=== PATIENT | male | born 1965 | race Caucasian/White ===

== ENCOUNTER → 2019-05-08 11:06 | Outpatient (CLI) | payer OTHER, SELFPAY ==
[2019-05-08 11:09] LABS: Microscopic, Urine URINE MICROSCOPIC (MICROSCOPIC)
[2019-05-08 11:42] LABS: Basophils % 0.5 % (0.1-2.0); Eosinophils # 0.1 K/mm3 (0.0-0.4); Eosinophils % 1.3 % (0.1-12.0); Hematocrit 47.7 % (42.0-52.0); Hemoglobin 16.3 g/dL (14.1-18.0); Lymphocytes # 2.1 K/mm3 (0.7-4.5); Lymphocytes % 31.8 % (10-50); Mean Corpuscular HGB Conc 34.1 g/dL (31.8-35.4); Mean Corpuscular Hemoglobin 30.9 pg (27.0-31.2); Mean Corpuscular Volume 90.6 fl (80-94); Mean Platelet Volume 7.1 fl (7.4-10.4); Monocytes # 0.6 K/mm3 (0.1-1.0); Monocytes % 9.1 % (1.7-9.3); Neutrophils # 3.8 K/mm3 (1.8-7.8); Neutrophils % 57.4 % (37.0-80.0); Platelet Count 221 K/mm3 (142-424); Red Blood Count 5.26 M/mm3 (4.60-6.20); Red Cell Distribution Width 12.5 % (11.5-17.5); White Blood Count 6.5 K/mm3 (4.8-10.8)
[2019-05-08 11:44] LABS: Appearance,Urine CLEAR (Clear); Bilirubin,Urine Negative (Negative); Blood, Urine Negative (Negative); Color,Urine YELLOW (Yellow); Glucose,Urine (UA) 3+ (Negative); Ketones,Urine Negative (Negative); Leukocyte Esterase,Urine Negative (Negative); Nitrate,Urine Negative (Negative); PH,Urine 5.5 (5.0-8.5); Protein,Urine Negative (Negative); Specific Gravity, Urine 1.015 (1.005-1.030); Urobilinogen,Urine 0.2 EU/dl (0.2)
[2019-05-08 12:31] LABS: Bacteria,Urine Trace /lpf; Squamous Epithelial Cell,Urine Occasional #/hpf (0-5)
[2019-05-08 13:22] LABS: Blood Urea Nitrogen 17 mg/dL (7-18); Calcium 9.2 mg/dL (8.5-10.1); Carbon Dioxide 27 mmol/L (21.0-32.0); Chloride 100 mmol/L (98-107); Creatinine,Serum 0.79 mg/dL (0.70-1.30); Estimated Glomerular Filt Rate 102 ml/min (>60); GFR (African American) 124 ML/MIN (>60); Glucose 166 mg/dL (74-106); Sodium 136 mmol/L (136-145)
== END ==
PROVIDERS: Visit Provider Surgery
DX: Z01.810 Encounter for preprocedural cardiovascular examination (principal); K42.9 Umbilical hernia without obstruction or gangrene; Z01.812 Encounter for preprocedural laboratory examination
CPT/HCPCS: 36415; 80048; 81001; 85025; 93005

== ENCOUNTER → 2019-08-29 13:32 | Outpatient (CLI) | payer OTHER, SELFPAY ==
--- NOTE | 2019-08-29 13:56 | CT_ITS ---
PROCEDURE: CT ABDOMEN PELVIS WO CON CLINICAL INDICATION: Questioning recurrent hernia Recurrence hernia, status post recent hernia repair COMPARISON: No exams were available for comparison TECHNIQUE: Axial images obtained with sagittal and coronal reformats. All CT scans at the facility use one or more dose reduction, viz: automated exposure control, ma/kV adjustment per patient size (including targeted exams where dose is matched to indication, i.e. head), or iterative reconstruction technique. FINDINGS: LOWER THORAX: There are coronary artery calcifications and aortic valve calcifications are noted. Normal heart size. The right hemidiaphragm is elevated. ABDOMEN & PELVIS: The liver, spleen, pancreas, adrenal glands, and kidneys show no acute finding. No intestinal obstruction or free air. No evidence of appendicitis or diverticulitis. No pelvic mass, abnormal fluid collection, or focal inflammatory change of the pelvis. No acute bony anomalies. Unremarkable appearing gallbladder. No renal or ureteral calculi. There is a prominent round collection in the anterior abdominal wall at the level of the umbilicus. This measures 7.6 x 10.5 x 7.3 cm longitudinal transverse and AP. This is well-circumscribed. The internal density is near water. This may represent a postsurgical seroma/resolving hematoma. No gas is evident within the collection in the wall does not appear thickened or irregular. There are small bilateral inguinal hernias containing fat. There does appear to be small bilateral femoral hernias as well as small bilateral inguinal hernias containing fat. No pelvic mass abnormal fluid collection or focal inflammatory change evident within the pelvis. There are degenerative changes of the lumbar spine. IMPRESSION: 1. Prominent fluid collection at the umbilical region within the subcutaneous soft tissues as described above consistent with postsurgical seroma/resolving hematoma. 2. No evidence of recurring umbilical hernia. 3. There are small bilateral inguinal and femoral hernias containing fat. Dictated by: Elder Burger MD 08/30/2019 09:29 Electronically signed by Elder Burger MD in [place] 08/30/2019 09:29
== END ==
PROVIDERS: PCP Family Medicine; Visit Provider Surgery
DX: K42.0 Umbilical hernia with obstruction, without gangrene (principal)
CPT/HCPCS: 74176

== ENCOUNTER → 2020-09-08 11:29 | Outpatient (CLI) | payer OTHER, SELFPAY | PROVIDERS: PCP Family Medicine; Visit Provider Family Medicine | DX: Z03.818 Encounter for observation for suspected exposure to other biological agents ruled out (principal) | CPT/HCPCS: U0003 ==

== ENCOUNTER → 2021-05-06 15:18 | Outpatient (CLI) | payer OTHER, SELFPAY ==
[2021-05-06 15:22] LABS: Microscopic, Urine URINE MICROSCOPIC (MICROSCOPIC)
--- NOTE | 2021-05-06 15:44 | ECG_ITS ---
APPROVED REPORT Exam: Resting ECG HR:84 bpm ECG Measurements Heart Rate 84 AXES ID 152 P 44 QRSd 80 QRS 73 QT 342 T -2 QTc 404 Conclusion Normal sinus rhythm Nonspecific T wave abnormality Abnormal ECG Electronically signed by : Octavio Barrera, 05/06/2021 21:33:31
[2021-05-06 15:50] LABS: Basophils # 0.1 K/mm3 (0-0.2); Basophils % 0.7 % (0.1-2.0); Eosinophils # 0.2 K/mm3 (0.0-0.4); Eosinophils % 2.1 % (0.1-12.0); Hematocrit 46.9 % (42.0-52.0); Hemoglobin 16.9 g/dL (14.1-18.0); Lymphocytes # 2.6 K/mm3 (0.7-4.5); Lymphocytes % 26.2 % (10-50); Mean Corpuscular Volume 91.7 fl (80-94); Mean Platelet Volume 7.2 fl (7.4-10.4); Monocytes # 0.6 K/mm3 (0.1-1.0); Monocytes % 6.2 % (1.7-9.3); Neutrophils # 6.5 K/mm3 (1.8-7.8); Neutrophils % 64.7 % (37.0-80.0); Platelet Count 247 K/mm3 (142-424); Red Blood Count 5.12 M/mm3 (4.60-6.20); Red Cell Distribution Width 13.2 % (11.5-17.5)
[2021-05-06 15:52] LABS: Appearance,Urine CLEAR (Clear); Bilirubin,Urine Negative (Negative); Blood, Urine Negative (Negative); Color,Urine YELLOW (Yellow); Glucose,Urine (UA) 3+ (Negative); Ketones,Urine TRACE (Negative); Leukocyte Esterase,Urine Negative (Negative); Nitrate,Urine Negative (Negative); Protein,Urine Negative (Negative)
[2021-05-06 16:24] LABS: Squamous Epithelial Cell,Urine Occasional #/hpf (0-5)
[2021-05-06 16:37] LABS: Chloride 97 mmol/L (98-107); Potassium 4.6 mmoL/L (3.5-5.1); Sodium 135 mmol/L (136-145)
[2021-05-06 16:39] LABS: Blood Urea Nitrogen 25 mg/dl (9-20); Estimated Glomerular Filt Rate 100 ml/min (>60); GFR (African American) 121 ML/MIN (>60)
[2021-05-06 16:40] LABS: Anion Gap 13.6 mEq/L (5-15); Calcium 9.5 mg/dl (8.4-10.2); Carbon Dioxide 29 mmol/L (22.0-30.0); Glucose 120 mg/dl (74-100)
== END ==
PROVIDERS: Visit Provider Surgery
DX: Z01.812 Encounter for preprocedural laboratory examination (principal); Z11.52 Encounter for screening for COVID-19; K43.9 Ventral hernia without obstruction or gangrene
CPT/HCPCS: 36415; 80048; 81001; 85025; 93005; U0003

== ENCOUNTER 2021-05-08 10:25 | Day surgery (SDC) | payer OTHER, SELFPAY ==
[2021-05-07 11:29] VITALS: BMI 32.5
[2021-05-08] VITALS (12 sets, daily range): BP systolic 125–160; BP diastolic 71–100; PULSE 68–86; RESP 16–18; TEMP 36.1–37; O2SAT 91–96
[2021-05-08 11:15] LABS: POC Glucose,Bedside 177 (70-110)
--- NOTE | 2021-05-08 12:14 | P.PN_ITS ---
[facility] Anesthesia Checklist - Structural Data Admitted From: Home Planned Operative Procedure/s: lap ventral hernia repair Consent for Planned Operative Procedure(s) Verified: Yes - Additional verifications Anesthesia Reactions: No Hx Blood Transfusions: No Blood Transfusion Reaction: No - Airway Assessment C-Spine Mobility Assessed: Yes TMJ Mobility Assessed: Yes Dentition: Good Dentition - Neurological Assessment Level of Consciousness: Awake, Alert, Appropriate - Anesthesia Plan Anesthesia Risk discussed: Yes Anesthesia Plan: Verified ASA Class: III Anesthesia Type: General [facility] History I have reviewed the patient's past medical history: Yes Medical History: Reports:: Diabetes Mellitus Type 2, Hyperlipidemia, Hypertension Denies:: Cancer, Diabetes Mellitus Type 1, Internal Pacemaker, MRSA, Seizures *Have you ever received a pneumonia vaccine?: Yes *Have you received a flu vaccine this season?: Yes Other Medical History: Reports: Arthritis. Denies: Blood Transfusion Reaction Anesthesia experience/problems:: none Laterality Cases: Bilateral: ACL Repair, Arthroscopy Knee Other Surgeries: Yes: No Previous Surgery, Hernia Repair. No: Pacemaker Amputation: No Fractures: No - *Social History Last grade of school completed: Some college Smoking Status: Never smoker Alcohol Intake: never Substance Use Type: denies use *Occupational Status:: employed Housing: house Household Members: spouse *Travel in the last 8 weeks: None Family Hx:: No significant family history
--- NOTE | 2021-05-08 13:49 | P.OP_ITS ---
Date of procedure: 05/08/21 Pre-op Diagnosis:: Periumbilical hernia with incarcerated omentum (left) Post-op Diagnosis:: Same Procedure performed:: Laparoscopic-assisted open repair of incarcerated periumbilical hernia Surgeon:: Marc Frazier MD Cloth Colors Examiner(s):: Annie DRAINAGE ENGINEER:: Db Blake Anesthesia: GETA Estimated blood loss (mL): 25 Operative findings:: Incarcerated left periumbilical hernia at margin of prior repair (note prior umbilical hernia repair completed with 8.2 cm Ventralex mesh) Small marginal portion of prior Ventralex removed with hernia sac New 8.2 cm Ventralex mesh secured in position with a combination of 0 Ethibond to include fascial primary closure and marginal tacking with Optiflex. Operative note:: After informed consent was obtained the patient was taken to the operating room and placed in the supine position. General anesthesia was induced and his abdomen was prepped and draped in a sterile fashion. After infiltration local anesthetic a stab incision was made in the left upper quadrant. A Veress needle was placed in position. A 5 mm optical trocar was placed in the right mid flank. Under direct visualization an additional 5 mm trocar was placed in the right upper quadrant. Evaluation revealed a 4 cm defect with incarcerated omentum. The omentum was carefully reduced. An incision over the defect was then made in the majority of the repair was completed in an open fashion. The dissection was taken with electrocautery down to the edge of the fascia. The inferior edge of the hernia sac was carefully evaluated. This was the margin of the prior Ventralex mesh. A small portion of the Ventralex was transected with the hernia sac and passed off for pathologic evaluation. A small portion of incarcerated omentum that had been reduced was evaluated. The attachments were transected with electrocautery. An additional 8.2 cm Ventralex mesh was placed in position. The mesh was secured with 0 Ethibond to also incorporate a primary fascial closure. Pneumoperitoneum was once again established and evaluation revealed mild infolding of the mesh. The margin of the mesh was secured with Optiflex tacks. Pneumoperitoneum was released and skin skin was closed with interrupted 4-0 nylon. Dressings were applied and the patient was transferred to recovery in stable condition after extubation. Condition: stable Disposition: PACU Specimens:: Hernia sac Complications:: No immediate
[2021-05-08 14:04] LABS: Microscopic, Urine URINE MICROSCOPIC (MICROSCOPIC)
[2021-05-08 14:07] LABS: Appearance,Urine CLEAR (Clear); Bilirubin,Urine Negative (Negative); Blood, Urine Negative (Negative); Color,Urine YELLOW (Yellow); Glucose,Urine (UA) TRACE (Negative); Ketones,Urine Negative (Negative); Leukocyte Esterase,Urine Negative (Negative); Nitrate,Urine Negative (Negative); PH,Urine 5.5 (5.0-8.5); Protein,Urine Negative (Negative); Urobilinogen,Urine 0.2 EU/dl (0.2)
[2021-05-08 14:19] LABS: Squamous Epithelial Cell,Urine Occasional #/hpf (0-5)
[2021-05-08 14:31] LABS: POC Glucose,Bedside 171 (70-110)
--- NOTE | 2021-05-08 14:49 | P.PN_ITS ---
[facility] Anesthesia Record Part I Intake, IV Amount: 2,000 Estimated blood loss (mL): 10 Urine output (mL): 300 Blood Pressure: 160/100 SaO2: 94 Pulse Rate: 68 Respiratory Rate: 16 Temperature: 98.6 F Patient is:: Drowsy, Stable Stable to PACU at:: 14:00
--- NOTE | 2021-05-08 14:51 | PC.NURSE ---
pt voiding per urinal
--- NOTE | 2021-05-08 17:32 | HMH.ANESII ---
[facility] Anesthesia Record Part II Discharge Time: 14:39 Destination: Surgical Day Care (OP Surgery) PACU nurse assessment reviewed?: Yes Patient Condition:: Good Anesthesia Complications:: None Swallowing reflex intact?: Yes Cyanosis?: No Blood Pressure: 139/87 Pulse Rate: 73 Temperature: 97 F Mental Status: Alert & Oriented Pain level:: 4 Nausea and/or vomitting:: None Intake, IV Amount: 0
== END 2021-05-08 15:20 | disposition home or self-care (01) ==
LOC: OR 10:27
PROVIDERS: PCP Family Medicine; Visit Provider Surgery
PROC: 0WQF4ZZ Repair Abdominal Wall, Percutaneous Endoscopic Approach (ICD-10-PCS; CPT 49587; principal; 2021-05-08 12:00)
DX: K42.0 Umbilical hernia with obstruction, without gangrene (principal); E11.9 Type 2 diabetes mellitus without complications; E78.5 Hyperlipidemia, unspecified; I10 Essential (primary) hypertension; M19.90 Unspecified osteoarthritis, unspecified site; Z79.899 Other long term (current) drug therapy
CPT/HCPCS: 49587; 81001; 82962; 96374; C1781; J2405; J2710

== ENCOUNTER 2021-10-15 09:12 | Emergency (ER) | payer OTHER, SELFPAY ==
[2021-10-15 09:35] VITALS: BP 143/85; PULSE 83; RESP 18; TEMP 36.8; O2SAT 95; BMI 33.2
[2021-10-15 09:48] LABS: UTC Strep Screen (Rapid) Negative (Negative)
--- NOTE | 2021-10-15 10:31 | HMH.EDUTC ---
[facility] Disposition Clinical Impression: Acute bronchitis Qualifiers: Bronchitis organism: unspecified organism Qualified Code(s): J20.9 - Acute bronchitis, unspecified Sinusitis Qualifiers: Sinusitis location: unspecified location Chronicity: acute Recurrence: non-recurrent Qualified Code(s): J01.90 - Acute sinusitis, unspecified Disposition: Home, Self-Care Condition on Discharge: Good Instructions: DI for Sinusitis, DI for Acute Bronchitis Additional Instructions: Drink plenty of fluids. Take tylenol or ibuprofen for pain or fever. Take the medications as directed. Follow up with your regular doctor. GO TO THE ER FOR ANY WORSENING SYMPTOMS Go ahead and start the antibiotics this afternoon, even though you had the shot here this morning. Prescriptions: Promethazine/Dextromethorphan [Promethazine-Dm Syrup] 5 ml PO Q6HP PRN #240 ml PRN Reason: Cough Transmission Status: Received by [facility] Amoxicillin/Potassium Clav [Augmentin 875-125 Tablet] 1 tab PO Q12H 10 Days #20 tab Transmission Status: Received by [facility] guaiFENesin [Mucinex 600mg tablet] 1 - 2 tab PO BIDP PRN #30 tab PRN Reason: Congestion Transmission Status: [facility] Referrals: Octavio Carnes MD [Primary Care Provider] - Time of Disposition: 10:48 Medical Decision Making - Medical Records Medical records reviewed: No: I reviewed the patient's medical records. - Farzad Inquiry Pt receiving controlled substance: No Vital Signs: 10/15/21 09:35 10/15/21 10:54 Temperature 98.3 F 98.3 F Temperature Source Oral Pulse Rate 83 Pulse Rate [Left] 83 Respiratory Rate 18 18 Blood Pressure 143/85 H Blood Pressure [Right Arm] 143/85 H Blood Pressure Mean [Right Arm] 104 02 Sat by Pulse Oximetry 95 - Lab Data Lab Results 10/15/21 09:38: Strep Scn Rapid Clinic Negative Orders (Tests/Meds): ED MEDICATIONS Discontinued Medications Generic Name Dose Route Start Last Admin Trade Name Freq PRN Reason Stop Dose Admin Ceftriaxone Sodium 1 gm 10/15/21 10:31 10/15/21 10:40 Ceftriaxone 1gm Vial IM 10/15/21 10:32 1 gm ONCE ONE Administration Lidocaine HCl 0 ml 10/15/21 10:31 10/15/21 10:40 Lidocaine 1% 5ml Pf Vial IM 10/15/21 10:32 2 ml ONCE ONE Administration ORDERS Category Date Time Status Strep Screen Confirmation Routine Micro 10/15/21 09:38 Received [facility] HPI - General Stated complaint: sore throat, congestion Time Seen by Provider: 10/15/21 10:31 Mode of Arrival: Ambulatory Source of Information: Patient Limitations: No Limitations Description of Symptoms (Recalled from Triage Doc. by RN): pt c/o sinus congestion/pressure and drainage, sore throat, and a cough. x1week HEENT Symptoms (Recalled from RN notes): Yes (sore throat and sinus congestion/drainage) Resp Symptoms (Recalled from RN notes): Yes (cough) Skin Symptoms (Recalled from RN notes): No MS Symptoms (Recalled from RN notes): No Functional Status (Recalled from RN notes): wnl - Related Data Home Medications Medication Instructions Recorded Confirmed canagliflozin 300 mg tablet 300 mg PO DAILY 90 Days 01/12/18 06/09/21 lisinopril 10 mg tablet 10 mg PO DAILY 90 Days 01/12/18 06/09/21 meloxicam 15 mg tablet 15 mg PO DAILY 90 Days 01/12/18 06/09/21 pravastatin 20 mg tablet 20 mg PO DAILY 90 Days 01/12/18 06/09/21 saxagliptin 2.5 mg-metformin ER 1 tab PO DAILY 90 Days 01/12/18 06/09/21 1,000 mg tablet,extend release 24hr mp Previous Rx's Medication Instructions Recorded Amoxicillin/Potassium Clav 1 tab PO Q12H 10 Days #20 tab 10/15/21 [Augmentin 875-125 Tablet] Promethazine/Dextromethorphan 5 ml PO Q6HP PRN #240 ml 10/15/21 [Promethazine-Dm Syrup] guaiFENesin [Mucinex 600mg tablet] 1 - 2 tab PO BIDP PRN #30 tab 10/15/21 Allergies Allergy/AdvReac Type Severity Reaction Status Date / Time No Known Drug Allergies Allergy Unknown Verif
[2021-10-15 10:54] VITALS: BP 143/85; PULSE 83; RESP 18; TEMP 36.8
== END 2021-10-15 10:59 | disposition home or self-care (01) ==
PROVIDERS: Emergency Provider Nurse Practitioner Family; PCP Family Medicine
DX: J20.9 Acute bronchitis, unspecified (principal); J01.90 Acute sinusitis, unspecified; I10 Essential (primary) hypertension; E78.5 Hyperlipidemia, unspecified; E11.9 Type 2 diabetes mellitus without complications; Z79.899 Other long term (current) drug therapy
CPT/HCPCS: 87880; 99202; G0463

== ENCOUNTER 2021-10-16 13:40 | Emergency (ER) | payer OTHER, SELFPAY ==
[2021-10-16 14:06] VITALS: BP 0/0; PULSE 0; RESP 0; TEMP -17.7; TEMP 0
== END 2021-10-16 14:07 | disposition left against medical advice (07) ==
PROVIDERS: Emergency Provider Nurse Practitioner Family; PCP Family Medicine
DX: Z53.21 Procedure and treatment not carried out due to patient leaving prior to being seen by health care provider (principal)

== ENCOUNTER → 2021-10-16 13:45 | Outpatient (CLI) | payer OTHER, SELFPAY | PROVIDERS: PCP Family Medicine; Visit Provider Nurse Practitioner Family | DX: Z20.822 Contact with and (suspected) exposure to COVID-19 (principal) | CPT/HCPCS: C9803; U0003; U0005 ==

== ENCOUNTER → 2021-12-10 10:49 | Outpatient (CLI) | payer OTHER, SELFPAY ==
[2021-12-11 06:32] LABS: Covid-19 Nasal PCR Sendout Lex POSITIVE
== END ==
PROVIDERS: Visit Provider Nurse Practitioner
DX: U07.1 COVID-19 (principal)
CPT/HCPCS: C9803; U0004; U0005

== ENCOUNTER → 2021-12-24 14:30 | Outpatient (CLI) | payer OTHER, SELFPAY ==
--- NOTE | 2021-12-24 14:40 | XR_ITS ---
FINAL REPORT CLINICAL HISTORY: COUGH, hx of covid 1.5 weeks ago FINDINGS: Two views of the chest were obtained. The heart size and pulmonary vascularity are within normal limits. The mediastinum is normal. There is mild left lung base atelectasis or pneumonia. There is no pneumothorax. There are moderate degenerative changes of the thoracic spine. IMPRESSION: Mild left base atelectasis or pneumonia. Reviewed, Interpreted and Dictated by Sylvester Lundberg III, MD Transcribed by Andrew Stone Authenticated by Sylvester Lundberg III, MD on 12/24/2021 04:18:17 PM [facility]
[2021-12-24 16:13] LABS: Basophils # 0.1 K/mm3 (0-0.2); Basophils % 1.3 % (0.1-2.0); Eosinophils # 0.1 K/mm3 (0.0-0.4); Eosinophils % 1.5 % (0.1-12.0); Hematocrit 50.6 % (42.0-52.0); Hemoglobin 17.6 g/dL (14.1-18.0); Lymphocytes # 2.1 K/mm3 (0.7-4.5); Lymphocytes % 30.2 % (10-50); Mean Corpuscular HGB Conc 34.8 g/dL (31.8-35.4); Mean Corpuscular Hemoglobin 32.9 pg (27.0-31.2); Mean Corpuscular Volume 94.6 fl (80-94); Mean Platelet Volume 8.4 fl (7.4-10.4); Monocytes # 0.4 K/mm3 (0.1-1.0); Monocytes % 5.1 % (1.7-9.3); Neutrophils # 4.3 K/mm3 (1.8-7.8); Platelet Count 291 K/mm3 (142-424); Red Blood Count 5.35 M/mm3 (4.60-6.20); Red Cell Distribution Width 13.4 % (11.5-17.5)
[2021-12-24 17:00] LABS: Alanine Aminotransferase 56 U/L (12-78); Albumin/Globulin Ratio 1.7 (1.1-1.8); Alkaline Phosphatase 80 U/L (38-126); Anion Gap 11.4 mEq/L (5-15); Aspartate Amino Transferase 43 U/L (17-59); Bilirubin,Total 0.7 mg/dl (0.2-1.3); Blood Urea Nitrogen 14 mg/dl (9-20); Calcium 9.1 mg/dl (8.4-10.2); Carbon Dioxide 28 mmol/L (22.0-30.0); Chloride 103 mmol/L (98-107); Estimated Glomerular Filt Rate 116 ml/min (>60); GFR (African American) 141 ML/MIN (>60); Globulin 2.3 g/dL (1.3-3.2); Glucose 158 mg/dl (74-100); Potassium 4.4 mmoL/L (3.5-5.1); Sodium 138 mmol/L (136-145); Total Protein,Serum 6.3 g/dl (6.3-8.2)
[2021-12-24 17:05] LABS: C-Reactive Protein 1.6 mg/L (0-4)
== END ==
PROVIDERS: PCP Family Medicine; Visit Provider Family Medicine
DX: R06.02 Shortness of breath (principal); R05.9 Cough, unspecified
CPT/HCPCS: 36415; 71046; 80053; 85025; 86140

== ENCOUNTER 2022-07-05 21:03 | Emergency (ER) | payer OTHER, SELFPAY ==
[2022-07-05 21:05] VITALS: BP 130/109; PULSE 73; RESP 16; TEMP 36.9; O2SAT 98; BMI 34.9
--- NOTE | 2022-07-05 21:34 | CT_ITS ---
PROCEDURE INFORMATION: Exam: CT Abdomen And Pelvis With Contrast Exam date and time: 07/05/22 11:09 PM Age: 57 years old Clinical indication: Abdominal pain; Prior surgery; Surgery type: Inguinal hernia repairs; Patient HX: PT states abd pain/cramping since 1400. PT states currently has a hernia TECHNIQUE: Imaging protocol: Computed tomography of the abdomen and pelvis with contrast. Radiation optimization: All CT scans at this facility use at least one of these dose optimization techniques: automated exposure control; mA and/or kV adjustment per patient size (includes targeted exams where dose is matched to clinical indication); or iterative reconstruction. Contrast material: ISOVUE; Contrast volume: 75 ml; Contrast route: IV; COMPARISON: CT ABDOMEN PELVIS WO CON 08/29/19 01:59 PM FINDINGS: Tubes, catheters and devices: None noted. Lungs: Lung bases appear clear. Heart: No significant coronary calcifications. No cardiomegaly. No significant pericardial effusion. Liver: Normal. No mass. Gallbladder and bile ducts: Normal. No calcified stones. No ductal dilation. Pancreas: Normal. No ductal dilation. Spleen: Normal. No splenomegaly. Adrenal glands: Normal. No mass. Kidneys and ureters: Normal. No hydronephrosis. Stomach and bowel: Unremarkable. No obstruction. No mucosal thickening. Appendix: No evidence of appendicitis. Intraperitoneal space: Unremarkable. No free air. No significant fluid collection. Retroperitoneal space: No significant retroperitoneal inflammatory changes are noted. Vasculature: Unremarkable. No abdominal aortic aneurysm. Lymph nodes: Unremarkable. No enlarged lymph nodes. Urinary bladder: Unremarkable as visualized. Reproductive: Unremarkable as visualized. Bones/joints: Unremarkable. No acute fracture. Soft tissues: Periumbilical hernia eccentric to the right contains bowel with high-grade small bowel obstruction. Bilateral inguinal hernias contain fat. IMPRESSION: Periumbilical hernia eccentric to the right contains bowel with high-grade small bowel obstruction.
[2022-07-05 22:05] LABS: Basophils # 0.3 K/mm3 (0-0.2); Basophils % 1.5 % (0.1-2.0); Eosinophils # 0.3 K/mm3 (0.0-0.4); Eosinophils % 1.6 % (0.1-12.0); Hematocrit 54.5 % (42.0-52.0); Lymphocytes # 2.1 K/mm3 (0.7-4.5); Lymphocytes % 12.5 % (10-50); Mean Corpuscular HGB Conc 33.4 g/dL (31.8-35.4); Mean Corpuscular Volume 98.7 fl (80-94); Mean Platelet Volume 8.1 fl (7.4-10.4); Monocytes # 0.8 K/mm3 (0.1-1.0); Monocytes % 4.9 % (1.7-9.3); Neutrophils % 79.5 % (37.0-80.0); Platelet Count 275 K/mm3 (142-424); Red Blood Count 5.52 M/mm3 (4.60-6.20); Red Cell Distribution Width 13.3 % (11.5-17.5); White Blood Count 16.3 K/mm3 (4.8-10.8)
[2022-07-05 22:28] LABS: MANUAL DIFFERENTIAL MANUAL DIFFERENTIAL (MANUAL DIFF)
[2022-07-05 22:29] LABS: Hemoglobin 18.3 g/dL (14.1-18.0)
[2022-07-05 22:31] LABS: Alanine Aminotransferase 80 U/L (12-78); Albumin Level 4.2 g/dl (3.5-5.0); Albumin/Globulin Ratio 1.6 (1.1-1.8); Alkaline Phosphatase 88 U/L (38-126); Amylase 57 U/L (30-110); Anion Gap 18.3 mEq/L (5-15); Aspartate Amino Transferase 59 U/L (17-59); Blood Urea Nitrogen 19 mg/dl (9-20); Calcium 9.3 mg/dl (8.4-10.2); Carbon Dioxide 21 mmol/L (22.0-30.0); Chloride 97 mmol/L (98-107); Creatinine Clearance Estimated 228 mL/min (50-200); Estimated Glomerular Filt Rate 138 ml/min (>60); GFR (African American) 167 ML/MIN (>60); Globulin 2.6 g/dL (1.3-3.2); Glucose 192 mg/dl (74-100); Lipase 52 U/L (23-300); Potassium 4.3 mmoL/L (3.5-5.1); Sodium 132 mmol/L (136-145); Total Protein,Serum 6.8 g/dl (6.3-8.2)
[2022-07-05 22:36] LABS: C-Reactive Protein 2.9 mg/L (0-4)
[2022-07-05 22:37] LABS: Eosinophils % 2 % (0-3); Lymphocytes % 11 % (10-50); Monocytes % 8 % (2-9); Neutrophils % 79 % (42-76); Platelet Estimate Normal; RBC Morphology Normal; Total Cells Counted 100
[2022-07-05 22:50] LABS: Procalcitonin 0.126 ng/mL (0.0-2.0)
[2022-07-05 23:26] LABS: Erythrocyte Sedimentation Rate 20 mm/hr (0-20)
--- NOTE | 2022-07-05 23:36 | HMH.EDABDPAI ---
Discharge Plan Disposition Patient Disposition: Home, Self-Care Chief Complaint: Abdominal Pain Prescriptions Prescriptions: No Action meloxicam 15 mg tablet 15 mg PO DAILY 90 Days Label Comments: lisinopril 10 mg tablet 10 mg PO DAILY 90 Days Label Comments: pravastatin 20 mg tablet 20 mg PO DAILY 90 Days Label Comments: saxagliptin-metformin 2.5-1,000 mg tablet, ER multiphase 24 hr 1 tab PO DAILY 90 Days Label Comments: canagliflozin 300 mg tablet 300 mg PO DAILY 90 Days Label Comments: guaifenesin 600 MG tablet extended release 12hr 1 - 2 tab PO BIDP PRN (Reason: Congestion) Qty: 30 0RF Referrals Follow up/Referrals: Marga Campos APRN [Primary Care Provider] - See instructions Clinical Impressions Clinical Impression: Ventral hernia with bowel obstruction Instructions Patient Instructions: DI for Acute Abdominal Pain, DI for Ventral Hernia Discharge ED Provider: Jhoan Vann Abdominal Pain HPI General Chief Complaint: Abdominal Pain Stated Complaint: Adm pain, poss hernia surgery 07/15 Time Seen by Provider: 07/05/22 23:36 Mode of Arrival: Ambulatory Source of Information: Patient, Spouse and Medical Record Limitations: No Limitations Description of Symptoms (Recalled from ER Triage Doc. by RN): pt c/o abd pain about umbical area that started about 2:30 this afternoon. pt has known herina and scheduled for surgery on 07/15 History of Present Illness HPI narrative: acute rt sided ventral hernia known but with acute pain this afternoon MD complaint: abdominal pain Onset (ago): hour(s) Consistency: constant Location: periumbilical Severity: moderate Quality: sharp Associated symptoms: denies other symptoms Related Data Home Medications Medication Instructions Recorded Confirmed canagliflozin 300 mg tablet 300 mg PO DAILY Diabetes 90 days 01/12/18 06/18/22 lisinopril 10 mg tablet 10 mg PO DAILY blood pressure 90 01/12/18 06/18/22 days meloxicam 15 mg tablet 15 mg PO DAILY Pain 90 days 01/12/18 06/18/22 pravastatin 20 mg tablet 20 mg PO DAILY Cholesterol 90 days 01/12/18 06/18/22 saxagliptin 2.5 mg-metformin ER 1 tab PO DAILY Diabetes 90 days 01/12/18 06/18/22 1,000 mg tablet,extend release 24hr mp Previous Rx's Medication Instructions Recorded guaifenesin 600 mg tablet, 1 - 2 tab PO BIDP PRN Congestion 10/15/21 extended release 12 hr #30 tabs Allergies Allergy/AdvReac Type Severity Reaction Status Date / Time No Known Drug Allergies Allergy Unknown Verified 06/18/22 09:05 [NKDA] PFSH PFS Surgical History (Updated 06/18/22 @ 09:09 by RICARDO Elizabeth) History of hernia surgery Social History (Updated 06/18/22 @ 09:44 by Marc Frazier MD) Smoking Status: Never smoker second hand exposure: No alcohol intake: never substance use type: denies use current occupational status: employed Travel in the last 8 weeks: None household members: spouse housing: house current occupational exposures/hazards: No caffeine: Yes ROS Obtained: Yes All systems reviewed & no additional complaints except as documented Constitutional Constitutional: Denies fever(s) Eyes Eyes: Denies diplopia ENT Ears, Nose, Mouth, and Throat: Denies otalgia Cardiovascular Cardiovascular: Denies chest pain with activity Respiratory Respiratory: Denies cough Gastrointestinal Gastrointestingal: Reports as per HPI, abdominal pain and other (has known hernia ) Musculoskeletal Musculoskeletal: Denies arthralgias Physical Exam General General appearance: alert Head Head exam: normocephalic Eye Eye exam: Present PERRL and EOMI ENT ENT exam: Present mucous membranes moist Neck Neck exam: Present trachea midline Respiratory Respiratory exam: Absent respiratory distress Cardiovascular Cardiovascular exam: Present regular rate Abdominal Exam Abdominal exam: Present soft an
[2022-07-05 23:43] LABS: Microscopic, Urine URINE MICROSCOPIC (MICROSCOPIC)
[2022-07-05 23:46] LABS: Appearance,Urine CLEAR (Clear); Bilirubin,Urine Negative (Negative); Blood, Urine Negative (Negative); Color,Urine YELLOW (Yellow); Glucose,Urine (UA) Negative (Negative); Ketones,Urine Negative (Negative); Leukocyte Esterase,Urine Negative (Negative); Nitrate,Urine Negative (Negative); Protein,Urine Negative (Negative); Specific Gravity, Urine 1.025 (1.005-1.030)
[2022-07-06 00:06] LABS: Bacteria,Urine 1+ /lpf; WBC,Urine Occasional #/hpf (0-3)
--- NOTE | 2022-07-06 00:09 | PC.NURSE ---
Dr. Spence paged for Dr. Vann
[2022-07-06 00:37] VITALS: BP 143/71; PULSE 87; RESP 16; TEMP 36.6; O2SAT 95
== END 2022-07-06 00:39 | disposition home or self-care (01) ==
PROVIDERS: Emergency Provider Emergency Medicine; PCP Nurse Practitioner Family
DX: K43.6 Other and unspecified ventral hernia with obstruction, without gangrene (principal)
CPT/HCPCS: 74177; 80053; 81001; 82150; 83690; 84145; 85007; 85025; 85651; 86140; 96361; 96374; 96375; 99284; J2405; Q9967

== ENCOUNTER → 2022-07-13 08:01 | Outpatient (CLI) | payer OTHER, SELFPAY ==
--- NOTE | 2022-07-13 08:06 | ECG_ITS ---
APPROVED REPORT Exam: Resting ECG HR:78 bpm ECG Measurements Heart Rate 78 AXES WY 156 P 17 QRSd 81 QRS 30 QT 351 T 56 QTc 384 Conclusion SINUS RHYTHM NORMAL ECG UNCONFIRMED REPORT Electronically signed by : Octavio Barrera MD 07/13/2022 21:08:32
[2022-07-13 08:17] LABS: Microscopic, Urine URINE MICROSCOPIC (MICROSCOPIC)
[2022-07-13 09:11] LABS: Basophils # 0.1 K/mm3 (0-0.2); Basophils % 0.9 % (0.1-2.0); Eosinophils # 0.2 K/mm3 (0.0-0.4); Hematocrit 52.9 % (42.0-52.0); Hemoglobin 17.9 g/dL (14.1-18.0); Lymphocytes # 2.1 K/mm3 (0.7-4.5); Lymphocytes % 24.9 % (10-50); Mean Corpuscular HGB Conc 33.9 g/dL (31.8-35.4); Mean Corpuscular Hemoglobin 33.1 pg (27.0-31.2); Mean Corpuscular Volume 97.5 fl (80-94); Mean Platelet Volume 7.7 fl (7.4-10.4); Monocytes # 0.6 K/mm3 (0.1-1.0); Monocytes % 7.1 % (1.7-9.3); Neutrophils # 5.4 K/mm3 (1.8-7.8); Neutrophils % 65.1 % (37.0-80.0); Platelet Count 275 K/mm3 (142-424); Red Blood Count 5.42 M/mm3 (4.60-6.20); Red Cell Distribution Width 13.3 % (11.5-17.5); White Blood Count 8.3 K/mm3 (4.8-10.8)
[2022-07-13 09:32] LABS: Appearance,Urine CLEAR (Clear); Bilirubin,Urine Negative (Negative); Blood, Urine Negative (Negative); Color,Urine YELLOW (Yellow); Glucose,Urine (UA) 3+ (Negative); Ketones,Urine Negative (Negative); Leukocyte Esterase,Urine Negative (Negative); Nitrate,Urine Negative (Negative); PH,Urine 5.5 (5.0-8.5); Protein,Urine Negative (Negative); Specific Gravity, Urine 1.015 (1.005-1.030); Urobilinogen,Urine 0.2 EU/dl (0.2)
[2022-07-13 09:43] LABS: Chloride 98 mmol/L (98-107); Potassium 4.9 mmoL/L (3.5-5.1); Sodium 140 mmol/L (136-145)
[2022-07-13 09:46] LABS: Anion Gap 16.9 mEq/L (5-15); Blood Urea Nitrogen 17 mg/dl (9-20); Calcium 9.2 mg/dl (8.4-10.2); Carbon Dioxide 30 mmol/L (22.0-30.0); Estimated Glomerular Filt Rate 138 ml/min (>60); GFR (African American) 167 ML/MIN (>60); Glucose 266 mg/dl (74-100)
[2022-07-13 09:55] LABS: Squamous Epithelial Cell,Urine Occasional #/hpf (0-5); WBC,Urine Occasional #/hpf (0-3)
== END ==
PROVIDERS: PCP Family Medicine; Visit Provider Surgery
DX: Z01.818 Encounter for other preprocedural examination (principal); Z20.822 Contact with and (suspected) exposure to COVID-19; K43.9 Ventral hernia without obstruction or gangrene
CPT/HCPCS: 36415; 80048; 81001; 85025; 93005; C9803; U0003; U0005

== ENCOUNTER 2022-07-15 08:39 | Day surgery (SDC) | payer OTHER, SELFPAY ==
[2022-07-13 11:12] VITALS: BMI 34.5
[2022-07-15 09:01] VITALS: BP 149/88; PULSE 94; RESP 18; TEMP 36.6; O2SAT 97
[2022-07-15 09:08] LABS: POC Glucose,Bedside 346 (70-110)
--- NOTE | 2022-07-15 10:02 | SUR.PREOP ---
Case cancelled per Dr. Frazier due to FSBS of 346. Case to be rescheduled in 2-4 weeks after pt. sees PCP for DM management. Will make f/u apt to see Dr. Frazier in the office in 2 weeks. Pt. denies any questions at this time.
== END 2022-07-15 10:04 | disposition home or self-care (01) ==
LOC: OR 08:40
PROVIDERS: PCP Family Medicine; Visit Provider Surgery
PROC: 0WQF4ZZ Repair Abdominal Wall, Percutaneous Endoscopic Approach (ICD-10-PCS; CPT 49652; principal; 2022-07-15 10:15)
DX: K43.2 Incisional hernia without obstruction or gangrene (principal); Z53.09 Procedure and treatment not carried out because of other contraindication; E11.65 Type 2 diabetes mellitus with hyperglycemia
CPT/HCPCS: 49652; 82962; 96374

== ENCOUNTER → 2022-07-21 09:34 | Outpatient (CLI) | payer OTHER, SELFPAY ==
[2022-07-21 09:42] LABS: Coronavirus 19, PCR Not Detected (NotDetected); Influenza A, PCR Not Detected (NotDetected); Influenza B, PCR Not Detected (NotDetected)
== END ==
PROVIDERS: PCP Family Medicine; Visit Provider Surgery
DX: Z01.812 Encounter for preprocedural laboratory examination (principal); Z20.822 Contact with and (suspected) exposure to COVID-19; L72.3 Sebaceous cyst
CPT/HCPCS: C9803; U0003; U0005

== ENCOUNTER 2022-07-22 07:09 | Day surgery (SDC) | payer OTHER, SELFPAY ==
[2022-07-22] VITALS (10 sets, daily range): BP systolic 106–124; BP diastolic 60–89; PULSE 66–82; RESP 16–20; TEMP 36.1–36.4; O2SAT 95–98; BMI 33.2
[2022-07-22 07:41] LABS: POC Glucose,Bedside 177 (70-110)
--- NOTE | 2022-07-22 09:13 | EXP.ANES.CKL ---
[facility] Medical History Diabetes mellitus, type 2 History of COVID-19 Hyperlipidemia Hypertension Kidney stone Sleep apnea Surgical History History of hernia surgery History of knee replacement Family History Other No significant family history Social History (Updated 07/22/22 @ 07:37 by Danette Lombardi RN) Smoking Status: Never smoker second hand exposure: No alcohol intake: never substance use type: denies use current occupational status: employed Travel in the last 8 weeks: None household members: spouse housing: house current occupational exposures/hazards: No caffeine: Yes [facility] Anesthesia Checklist Patient Identification Patient Identification: Arm Band Structural Data Admitted From: Home Planned Operative Procedure/s: Excision of Back Cyst Consent for Planned Operative Procedure(s) Verified: Yes Verified Documents: Surgical Consent and History and Physical NPO Status Verified Time NPO: 00:00 Additional verifications Anesthesia Reactions: No Hx Blood Transfusions: No Blood Transfusion Reaction: No Airway Assessment C-Spine Mobility Assessed: Yes TMJ Mobility Assessed: Yes Dentition: Good Dentition Neurological Assessment Level of Consciousness: Awake and Alert Anesthesia Plan Anesthesia Risk discussed: Yes Anesthesia Plan: Verified ASA Class: II Anesthesia Type: General
--- NOTE | 2022-07-22 09:13 | EXP.OP.NOTE ---
Date of procedure: 07/22/22 Pre-op Diagnosis:: Infected sebaceous cyst mid upper back Post-op Diagnosis:: Same Procedure performed:: Incision and drainage of infected sebaceous cyst mid upper back Surgeon:: Marc Frazier MD NUCLEAR MEDICINE CHIEF TECHNOLOGIST:: Brian Carbone Anesthesia: LMA Estimated blood loss (mL): 15 Operative findings:: Infected cyst cavity excised Operative note:: After informed consent was obtained patient was taken to the operating room and placed in the supine position. General anesthesia with laryngeal mask airway was achieved. He was transferred to the left lateral decubitus position. His mid back was prepped and draped in a sterile fashion. The central portion of the abscess cavity/cyst was excised with electrocautery after initial scalpel incision of the skin. The deep subcutaneous tissue was carefully dissected around the cyst cavity. The wound was packed open with Kerlix after hemostasis was achieved with electrocautery. The entire region was infiltrated with 1% lidocaine. Dressings were applied and the patient was transferred to recovery in stable condition after removal of his laryngeal mask airway. Condition: stable Disposition: PACU Specimens:: None Complications:: No immediate
--- NOTE | 2022-07-22 09:14 | EXP.ANES.I ---
[facility] Anesthesia Record Part I Anesthesia Record I Intake, IV Amount: 600 Estimated blood loss (mL): 5 Urine output (mL): 0 Blood Pressure: 106/60 SaO2: 95 Pulse Rate: 73 Respiratory Rate: 16 Temperature: 97.1 F Patient is:: Drowsy and Stable Stable to PACU at:: 09:10
[2022-07-22 10:22] LABS: POC Glucose,Bedside 160 (70-110)
--- NOTE | 2022-07-22 10:28 | PC.NURSE ---
0916-bs 160, notified ALEKSANDR Hoang, no further orders given
--- NOTE | 2022-07-22 10:33 | PC.NURSE ---
0935-detailed report given to APOLONIA Boswell 0940-pt transported to post op via stretcher w/eddie rails up and left in care of APOLONIA Boswell and APOLONIA Jin , pt stable
[2022-07-23 14:36] VITALS: BP 122/67; PULSE 80; TEMP 36.2
--- NOTE | 2022-07-23 14:36 | EXP.ANES.II ---
[facility] Anesthesia Record Part II Anesthesia Record Part II Discharge Time: 09:40 Destination: Surgical Day Care (OP Surgery) PACU nurse assessment reviewed?: Yes Patient Condition:: Good Anesthesia Complications:: None Swallowing reflex intact?: Yes Cyanosis?: No Blood Pressure: 122/67 Pulse Rate: 80 Temperature: 97.2 F Mental Status: Alert & Oriented Pain level:: 0 Nausea and/or vomitting:: None Intake, IV Amount: 0
== END 2022-07-22 10:11 | disposition home or self-care (01) ==
PROVIDERS: PCP Family Medicine; Visit Provider Surgery
PROC: (CPT 10061; principal; 2022-07-22 08:45)
DX: L72.3 Sebaceous cyst (principal); Z79.899 Other long term (current) drug therapy; E11.9 Type 2 diabetes mellitus without complications
CPT/HCPCS: 10061; 82962; 96374; J2405

== ENCOUNTER → 2022-08-06 09:24 | Outpatient (CLI) | payer OTHER, SELFPAY ==
[2022-08-06 09:44] LABS: Basophils # 0.1 K/mm3 (0-0.2); Eosinophils # 0.1 K/mm3 (0.0-0.4); Eosinophils % 1.6 % (0.1-12.0); Hematocrit 47.9 % (42.0-52.0); Lymphocytes # 1.8 K/mm3 (0.7-4.5); Lymphocytes % 27.2 % (10-50); Mean Corpuscular HGB Conc 33.5 g/dL (31.8-35.4); Mean Corpuscular Hemoglobin 32.4 pg (27.0-31.2); Mean Corpuscular Volume 96.8 fl (80-94); Mean Platelet Volume 7.4 fl (7.4-10.4); Monocytes # 0.4 K/mm3 (0.1-1.0); Monocytes % 6.6 % (1.7-9.3); Neutrophils # 4.3 K/mm3 (1.8-7.8); Neutrophils % 63.6 % (37.0-80.0); Platelet Count 225 K/mm3 (142-424); Red Blood Count 4.95 M/mm3 (4.60-6.20); Red Cell Distribution Width 13.1 % (11.5-17.5); White Blood Count 6.7 K/mm3 (4.8-10.8)
[2022-08-06 10:06] LABS: Blood Urea Nitrogen 23 mg/dl (9-20); Calcium 9.2 mg/dl (8.4-10.2); Carbon Dioxide 25 mmol/L (22.0-30.0); Chloride 97 mmol/L (98-107); Estimated Glomerular Filt Rate 138 ml/min (>60); GFR (African American) 167 ML/MIN (>60); Glucose 157 mg/dl (74-100); Sodium 132 mmol/L (136-145)
== END ==
PROVIDERS: PCP Family Medicine; Visit Provider Surgery
DX: K43.9 Ventral hernia without obstruction or gangrene (principal)
CPT/HCPCS: 36415; 80048; 85025

== ENCOUNTER 2022-08-13 07:50 | Day surgery (SDC) | payer OTHER, SELFPAY ==
[2022-08-11 15:25] VITALS: BMI 32.5
[2022-08-13] VITALS (10 sets, daily range): BP systolic 129–153; BP diastolic 70–89; PULSE 65–76; RESP 16–18; TEMP 36.1–43; O2SAT 93–98
--- NOTE | 2022-08-13 09:09 | EXP.ANES.CKL ---
[facility] Medical History Diabetes mellitus, type 2 History of COVID-19 Hyperlipidemia Hypertension Kidney stone Sleep apnea Surgical History History of hernia surgery History of incision and drainage History of knee replacement Family History Other No significant family history Social History Smoking Status: Never smoker second hand exposure: No alcohol intake: never substance use type: denies use current occupational status: employed Travel in the last 8 weeks: None household members: spouse housing: house current occupational exposures/hazards: No caffeine: Yes [facility] Anesthesia Checklist Patient Identification Patient Identification: Arm Band and Verbal (Name & ) Structural Data Admitted From: Home Planned Operative Procedure/s: Laparascopic Ventral Hernia Repair Consent for Planned Operative Procedure(s) Verified: Yes Verified Documents: Surgical Consent NPO Status Verified Time NPO: 00:00 Additional verifications Anesthesia Reactions: No Hx Blood Transfusions: No Blood Transfusion Reaction: No Airway Assessment C-Spine Mobility Assessed: Yes TMJ Mobility Assessed: Yes Dentition: Good Dentition Neurological Assessment Level of Consciousness: Awake, Alert and Appropriate Anesthesia Plan Anesthesia Risk discussed: Yes ASA Class: III Anesthesia Type: General
--- NOTE | 2022-08-13 10:40 | EXP.OP.NOTE ---
Date of procedure: 08/13/22 Pre-op Diagnosis:: Periumbilical hernia Note: Periumbilical hernia to right and superior margin. Prior history of umbilical hernia repair with 8 cm Ventralex mesh and prior history of left periumbilical hernia repair with 8 cm Ventralex mesh. Post-op Diagnosis:: Same Procedure performed:: Laparoscopic periumbilical hernia repair (20.[address] mesh) Surgeon:: Marc Frazier MD Anesthesia: GETA Estimated blood loss (mL): 15 Operative findings:: Complex dense adhesions of small bowel and omentum to anterior abdominal wall Very dense adhesions to prior Ventralex mesh (small bowel and omentum) 4 cm defect to the right of and superior to the umbilicus 20.[address] mesh secured in position with OPTifix tacks Operative note:: After informed consent was obtained the patient was taken to the operating room and placed in the supine position. General anesthesia was induced and the abdomen was prepped and draped in a sterile fashion. After infiltration with local anesthetic a small stab incision was made in the left upper quadrant. A Veress needle was placed in position. The abdomen was insufflated. A 5 mm trocar was placed in the left mid flank. Under direct visualization a 5 mm trocar was placed at the site of the Veress needle insertion and an additional 5 mm trocar was placed in the left lower flank. Evaluation revealed multiple adhesed loops of small bowel and omentum to the anterior abdominal wall. A combination of blunt dissection and sharp scissor dissection was utilized to carefully take down the adhesions. Particularly dense adhesions along the previously-placed Ventralex mesh material was noted. There was no obvious sign of bowel injury as dissection continued. Once the adhesions were taken down, a 4 cm defect to the right and above the umbilicus was confirmed. A 12 mm optical trocar was placed under direct visualization through the defect. A 20.[address] mesh was then placed in the abdominal cavity through this trocar. The temporary placement balloon was insufflated. OPTifix tacks were then placed in position circumferentially. The air was evacuated from the placement balloon and it was removed through the left upper quadrant trocar site. Additional tacks were then placed in position. Two (2) additional 5 mm trocars were placed in position along the right abdomen/flank to facilitate tack placement. Reevaluation of the abdominal cavity revealed no active bleeding or sign of injury. Pneumoperitoneum was released and all trocars were removed. Skin was reapproximated with marla. Dressings were applied and the patient was transferred to recovery in stable condition after extubation. Condition: stable Disposition: PACU Specimens:: none Complications:: No immediate
--- NOTE | 2022-08-13 10:47 | EXP.ANES.I ---
[facility] Anesthesia Record Part I Anesthesia Record I Intake, IV Amount: 1,600 Estimated blood loss (mL): 10 Urine output (mL): 400 Blood Pressure: 147/80 SaO2: 93 Pulse Rate: 76 Respiratory Rate: 16 Temperature: 98.2 F Patient is:: Drowsy Stable to PACU at:: 10:43
[2022-08-13 10:52] LABS: POC Glucose,Bedside 166 (70-110)
--- NOTE | 2022-08-13 10:58 | SUR.PHASEI ---
1045- pt FSBS at this time is 166. no further orders
--- NOTE | 2022-08-13 11:15 | SUR.PHASEI ---
1112- detailed report called to joe reyes in post op at this time. 1114- pt left in stable condition connected to monitors, bed in lowest position with side rails up w/ joe bentley. All dressings CDI
[2022-08-13 12:15] LABS: Microscopic,Cath URINE MICROSCOPIC (MICROSCOPIC)
[2022-08-13 12:32] LABS: Appearance,Urine/Cath CLEAR (Clear); Bilirubin,Cath Negative (Negative); Blood, Urine/Cath Negative (Negative); Color,Urine/Cath YELLOW (Yellow); Glucose,Urine/Cath (UA) 3+ (Negative); Ketones,Urine/Cath 2+ (Negative); Leukocyte Esterase,Cath Negative (Negative); Nitrate,Cath Negative (Negative); Protein,Urine/Cath Negative (Negative); Urobilinogen,Cath 0.2 EU/dl (0.2)
[2022-08-13 12:51] LABS: WBC,Urine/Cath Occasional #/hpf (0-3)
[2022-08-14 15:16] LABS: POC Glucose,Bedside 155 (70-110)
== END 2022-08-13 11:44 | disposition home or self-care (01) ==
PROVIDERS: PCP Family Medicine; Visit Provider Surgery
PROC: (CPT 49652; principal; 2022-08-13 08:45)
DX: K42.9 Umbilical hernia without obstruction or gangrene (principal); E11.9 Type 2 diabetes mellitus without complications; Z79.899 Other long term (current) drug therapy
CPT/HCPCS: 49652; 81001; 82962; 96374; C1781; J0131; J2405

== ENCOUNTER 2022-08-15 14:35 | Inpatient (IN) | payer OTHER, SELFPAY ==
[2022-08-15] VITALS (12 sets, daily range): BP systolic 109–164; BP diastolic 58–82; PULSE 89–99; RESP 18–20; TEMP 36.7–37.1; O2SAT 96–100; BMI 33.2; BMI 32.0
--- NOTE | 2022-08-15 14:46 | CT_ITS ---
PROCEDURE INFORMATION: Exam: CT Abdomen And Pelvis With Contrast Exam date and time: 08/15/2022 3:20 PM Age: 57 years old Clinical indication: Nausea and vomiting; Patient HX: Hernia surgery Tuesday08/13/22; Additional info: Abd pain, vomiting and nausea can not keep anything down no water and solids , post op had hernia surgery Tuesday08/13/22 TECHNIQUE: Imaging protocol: Computed tomography of the abdomen and pelvis with contrast. Radiation optimization: All CT scans at this facility use at least one of these dose optimization techniques: automated exposure control; mA and/or kV adjustment per patient size (includes targeted exams where dose is matched to clinical indication); or iterative reconstruction. Contrast material: ISOVUE; Contrast volume: 75 ml; Contrast route: IV; COMPARISON: CT ABDOMEN PELVIS W CON 07/05/2022 11:09 PM FINDINGS: Pleural spaces: Trace right pleural effusion. Liver: Normal. No mass. Gallbladder and bile ducts: Normal. No calcified stones. No ductal dilation. Pancreas: Normal. No ductal dilation. Spleen: Normal. No splenomegaly. Adrenal glands: Normal. No mass. Kidneys and ureters: Normal. No hydronephrosis. Stomach and bowel: See Soft tissues finding. Appendix: No evidence of appendicitis. Intraperitoneal space: Unremarkable. No free air. No significant fluid collection. Vasculature: Minimal atherosclerosis. Lymph nodes: Unremarkable. No enlarged lymph nodes. Urinary bladder: Unremarkable as visualized. Reproductive: Unremarkable as visualized. Bones/joints: Unremarkable. No acute fracture. Soft tissues: Recent ventral hernia surgery. Small bowel protrude past the repair extending right of midline and appears distended and potentially obstructed. Bowel proximal to this measures up to 3.8 cm in diameter. Small amount of surrounding fluid and infiltrative changes in the adjacent fat. Free intraperitoneal gas and subcutaneous emphysema which may still be postsurgical. Small inguinal hernias containing fat. IMPRESSION: 1. Recent ventral hernia surgery. Small bowel protrude past the repair extending right of midline and appears distended and potentially obstructed. Bowel proximal to this measures up to 3.8 cm in diameter. Small amount of surrounding fluid and infiltrative changes in the adjacent fat. 2. Free intraperitoneal gas and subcutaneous emphysema which may still be postsurgical.
--- NOTE | 2022-08-15 14:57 | HMH.EDABDPAI ---
Discharge Plan Disposition Patient Disposition: Admitted As Inpatient Condition: Good Prescriptions Prescriptions: No Action meloxicam 15 mg tablet 15 mg PO DAILY 90 Days Label Comments: lisinopril 10 mg tablet 10 mg PO DAILY 90 Days Label Comments: pravastatin 20 mg tablet 20 mg PO DAILY 90 Days Label Comments: saxagliptin-metformin 2.5-1,000 mg tablet, ER multiphase 24 hr 1 tab PO DAILY 90 Days Label Comments: canagliflozin 300 mg tablet 300 mg PO DAILY 90 Days Label Comments: hydrocodone-acetaminophen 5-325 mg tablet 1 tab PO Q6H PRN (Reason: post-op pain) Qty: 17 0RF Referrals Follow up/Referrals: Octavio Carnes MD [Primary Care Provider] - See instructions Activity Restrictions/Add. Instructions Additional Instructions/Restrictions: Please follow up with your surgeon in th next 1-2 days and return for any worsening symptoms. Take zofran as prescribed. Clinical Impressions Clinical Impression: Metabolic acidosis, Acute vomiting Print Language Print Language: Frisian Discharge ED Provider: Alessandra Landis Abdominal Pain HPI General Chief Complaint: Nausea/Vomiting/Diarrhea Stated Complaint: nausea,vomiting , hernia surgery 08/13 Time Seen by Provider: 08/15/22 14:45 History of Present Illness HPI narrative: Timbo is a 57-year-old male past medical history for umbilical hernia status post multiple repairs, the most recent being Tuesday, presenting to the emergency department for nausea and multiple episodes of non-bloody, non-bilious emesis. Also reports increased belching and bloated. Procedure performed by Dr. Sy. Denies any significant abdominal pain. No fevers or other systemic signs of infection. Denies any inciting trauma. Reports he has not had a bowel movement as of yet but is still passing flatulence. Related Data Home Medications Medication Instructions Recorded Confirmed canagliflozin 300 mg tablet 300 mg PO DAILY Diabetes 90 days 01/12/18 08/11/22 lisinopril 10 mg tablet 10 mg PO DAILY blood pressure 90 01/12/18 08/11/22 days meloxicam 15 mg tablet 15 mg PO DAILY Pain 90 days 01/12/18 08/11/22 pravastatin 20 mg tablet 20 mg PO DAILY Cholesterol 90 days 01/12/18 08/11/22 saxagliptin 2.5 mg-metformin ER 1 tab PO DAILY Diabetes 90 days 01/12/18 08/11/22 1,000 mg tablet,extend release 24hr mp Previous Rx's Medication Instructions Recorded hydrocodone 5 mg-acetaminophen 325 1 tab PO Q6H PRN post-op pain #17 08/13/22 mg tablet tabs Allergies Allergy/AdvReac Type Severity Reaction Status Date / Time No Known Drug Allergies Allergy Unknown Verified 08/11/22 15:24 [NKDA] PFSH PFSH Medical History Diabetes mellitus, type 2 History of COVID-19 Hyperlipidemia Hypertension Kidney stone Sleep apnea Surgical History History of hernia surgery History of incision and drainage History of knee replacement Family History Other No significant family history Social History Smoking Status: Never smoker second hand exposure: No alcohol intake: never substance use type: denies use current occupational status: employed Travel in the last 8 weeks: None household members: spouse housing: house current occupational exposures/hazards: No caffeine: Yes ROS Obtained: Yes All systems reviewed & no additional complaints except as documented Constitutional Constitutional: Reports system reviewed and no additional complaints, except as documented and Reports poor appetite Eyes Eyes: Reports system reviewed and no additional complaints, except as documented ENT Ears, Nose, Mouth, and Throat: Reports system reviewed and no additional complaints, except as documented C
[2022-08-15 15:06] LABS: Basophils % 0.2 % (0.1-2.0); Eosinophils # 0.1 K/mm3 (0.0-0.4); Eosinophils % 0.8 % (0.1-12.0); Hematocrit 54.9 % (42.0-52.0); Hemoglobin 17.1 g/dL (14.1-18.0); Lymphocytes % 6.2 % (10-50); Mean Corpuscular HGB Conc 31.2 g/dL (31.8-35.4); Mean Corpuscular Hemoglobin 32.6 pg (27.0-31.2); Mean Corpuscular Volume 104.5 fl (80-94); Monocytes # 0.9 K/mm3 (0.1-1.0); Monocytes % 5.6 % (1.7-9.3); Neutrophils # 13.5 K/mm3 (1.8-7.8); Neutrophils % 87.2 % (37.0-80.0); Platelet Count 369 K/mm3 (142-424); Red Blood Count 5.25 M/mm3 (4.60-6.20); Red Cell Distribution Width 13.7 % (11.5-17.5); White Blood Count 15.5 K/mm3 (4.8-10.8)
[2022-08-15 15:07] LABS: Chloride 104 mmol/L (98-107); Sodium 135 mmol/L (136-145)
[2022-08-15 15:08] LABS: MANUAL DIFFERENTIAL MANUAL DIFFERENTIAL (MANUAL DIFF); Potassium 4.9 mmoL/L (3.5-5.1)
[2022-08-15 15:10] LABS: Alanine Aminotransferase 28 U/L (12-78); Albumin Level 4.4 g/dl (3.5-5.0); Albumin/Globulin Ratio 1.3 (1.1-1.8); Alkaline Phosphatase 88 U/L (38-126); Anion Gap 26.9 mEq/L (5-15); Aspartate Amino Transferase 28 U/L (17-59); Bilirubin,Total 0.7 mg/dl (0.2-1.3); Blood Urea Nitrogen 22 mg/dl (9-20); Calcium 8.7 mg/dl (8.4-10.2); Creatinine Clearance Estimated 158 mL/min (50-200); Estimated Glomerular Filt Rate 99 ml/min (>60); GFR (African American) 120 ML/MIN (>60); Globulin 3.3 g/dL (1.3-3.2); Glucose 207 mg/dl (74-100); Lipase 44 U/L (23-300); Total Protein,Serum 7.7 g/dl (6.3-8.2)
--- NOTE | 2022-08-15 15:18 | PC.NURSE ---
Critical lab value called to Rivas Lundberg RN Co2 9
[2022-08-15 15:20] LABS: Burr Cells 1+; Lymphocytes % 7 % (10-50); Macrocytosis 1+; Monocytes % 8 % (2-9); Neutrophils % 85 % (42-76); Platelet Estimate Normal; Spherocytes 1+; Total Cells Counted 100
--- NOTE | 2022-08-15 15:20 | PC.NURSE ---
rad here to get pt
--- NOTE | 2022-08-15 15:25 | PC.NURSE ---
notified of carbon dioxide level
[2022-08-15 15:45] LABS: Acetone, Serum (Rapid) Moderate (None Detect); Carbon Dioxide 9 mmol/L (22.0-30.0)
--- NOTE | 2022-08-15 15:51 | PC.NURSE ---
respiratory in room
--- NOTE | 2022-08-15 15:57 | PC.NURSE ---
YOVANY HERNANDEZ SPEAKING WITH [facility] AT THIS TIME HAND ZIPPER TRIMMER SURGEON PAGED AT THIS TIME
[2022-08-15 15:58] LABS: ABG Base Excess -19.9 mmol/L (-2.4-2.3); ABG HCO3 8.1 mmhg (22.0-26.0); ABG Oxygen Saturation 97 % (90-100); ABG PCO2 21.1 mmhg (35.0-45.0); ABG PO2 99.4 mmhg (80-100); ABG TCO2 8.7 mmhg (23-27)
[2022-08-15 16:00] LABS: Allen's Test ACCEPTABLE; Oxygen ROOM AIR %; Source R RADIAL
--- NOTE | 2022-08-15 16:00 | PC.NURSE ---
ABG REPORT AT THIS TIME PH 7.20 CO2 21.1 P02 99.4 BICARB 8.1 BASE EXCESS -19.9 DR. ETIENNE NOTIFIED AT THIS TIME
--- NOTE | 2022-08-15 16:01 | PC.NURSE ---
YOVANY HERNANDEZ SPEAKING WITH DR. ROCHA
--- NOTE | 2022-08-15 16:07 | PC.NURSE ---
DELMI HERNANDEZ is speaking with hospitalist
--- NOTE | 2022-08-15 16:15 | EXP.HP ---
History of Present Illness *Admission Date: 08/15/22 *Reason for visit:: abdominal pain, emesis *History of present illness: Mr. Izquierdo is a 57-year-old male with history of diabetes, hypertension, multiple umbilical hernias. Most recently had umbilical hernia repair on Tuesday with takedown of adhesions and placement of mesh. The first 24 hours, patient had some mild surgical pain. Had no nausea or vomiting. However on Tuesday he developed discomfort when eating and pain in his abdomen. He has been passing gas but no bowel movement since last . Today he began having nausea and vomiting. Has been unable to keep anything down. Has not taken his meds since surgery. No blood in his vomit or stool. Feels weak with abdominal pain only on exam/with palpation. Remains afebrile. Denies shortness of breath or chest pain. Having significant belching. at bedside, helps supplement history. Admitted to medicine for further management of small bowel obstruction. Surgery consulted in the ER. NG placed to decompress obstruction/stomach. PFSH PFS Medical History Diabetes mellitus, type 2 History of COVID-19 Hyperlipidemia Hypertension Kidney stone Sleep apnea Surgical History History of hernia surgery History of incision and drainage History of knee replacement Family History No significant family history Social History Smoking Status: Never smoker second hand exposure: No alcohol intake: never substance use type: denies use current occupational status: employed Travel in the last 8 weeks: None household members: spouse housing: house current occupational exposures/hazards: No caffeine: Yes Review of Systems Review of Systems Review of systems (narrative): 14 point review of systems performed, pertinent positives and negatives as per HPI Meds Home Medications and Allergies Home Medications Medication Instructions Recorded Confirmed Type canagliflozin 300 mg tablet 300 mg PO DAILY Diabetes 90 days 01/12/18 08/11/22 History lisinopril 10 mg tablet 10 mg PO DAILY blood pressure 90 01/12/18 08/11/22 History days meloxicam 15 mg tablet 15 mg PO DAILY Pain 90 days 01/12/18 08/11/22 History pravastatin 20 mg tablet 20 mg PO DAILY Cholesterol 90 days 01/12/18 08/11/22 History saxagliptin 2.5 mg-metformin ER 1 tab PO DAILY Diabetes 90 days 01/12/18 08/11/22 History 1,000 mg tablet,extend release 24hr mp hydrocodone 5 mg-acetaminophen 325 1 tab PO Q6H PRN post-op pain #17 08/13/22 Rx mg tablet tabs New Prescriptions to Start Prescriptions: Allergies Allergy/AdvReac Type Severity Reaction Status Date / Time No Known Drug Allergies Allergy Unknown Verified 08/11/22 15:24 [NKDA] Exam Data for Last 24 hours Vital signs and Labs for Last 24 Hours: Pulse Resp BP Pulse Ox 99 H 18 109/58 L 98 08/15/22 16:00 08/15/22 14:36 08/15/22 16:00 08/15/22 16:00 Laboratory Results - last 24 hr 08/15/22 14:55: WBC 15.5 H, RBC 5.25, Hgb 17.1, Hct 54.9 H, MCV 104.5 H, MCH 32.6 H, MCHC 31.2 L, RDW 13.7, Plt Count 369, MPV 8.0, Neut % (Auto) 87.2 H, Lymph % (Auto) 6.2 L, [place] % (Auto) 5.6, Eos % (Auto) 0.8, Baso % (Auto) 0.2, Neut # (Auto) 13.5 H, Lymph # (Auto) 1.0, [place] # (Auto) 0.9, Eos # (Auto) 0.1, Baso # (Auto) 0.0, Total Counted 100, Neutrophils % (Manual) 85 H, Lymphocytes % (Manual) 7 L, Monocytes % (Manual) 8, Platelet Estimate Normal, Macrocytosis 1+, Spherocytes 1+, Michelle Cells 1+ 08/15/22 14:55: Sodium 135 L, Potassium 4.9, Chloride 104, Carbon Dioxide 9 L*, Anion Gap 26.9 H, BUN 22 H, Creatinine 0.80, Estimated Creat Clear 158, Estimated GFR 99, Est GFR ( Amer) 120, Glucose 207 H, Calcium 8.7, Total Bilirubin 0.7, AST 28, ALT 28, Alkaline Phosphat
--- NOTE | 2022-08-15 16:19 | PC.NURSE ---
Nurse, Rivas Dickens at bedside updating pt on plan of care.
--- NOTE | 2022-08-15 16:28 | XR_ITS ---
PROCEDURE INFORMATION: Exam: XR Chest Exam date and time: 08/15/2022 4:44 PM Age: 57 years old Clinical indication: Device placement; Ng tube; Additional info: Confirm ng placement TECHNIQUE: Imaging protocol: Radiologic exam of the chest. Views: 1 view. COMPARISON: CR XR CHEST 2V 12/24/2021 2:57 PM FINDINGS: Tubes, catheters and devices: Tip the nasogastric tube is in the fundus of the stomach. Lungs: Old granulomatous disease. Atelectasis. Pleural spaces: Unremarkable. No pleural effusion. No pneumothorax. Heart/Mediastinum: Unremarkable. No cardiomegaly. Bones/joints: Unremarkable. IMPRESSION: Tip of the nasogastric tube is in the fundus of the stomach.
[2022-08-15 16:29] LABS: Coronavirus 19, PCR Not Detected (NotDetected); Influenza A, PCR Not Detected (NotDetected); Influenza B, PCR Not Detected (NotDetected)
--- NOTE | 2022-08-15 16:38 | PC.NURSE ---
Dr. Banuelos at bedside
--- NOTE | 2022-08-15 16:39 | PC.NURSE ---
Dr Banuelos is a bed side.
--- NOTE | 2022-08-15 16:43 | PC.NURSE ---
Notified admissions that pt will be going to 208, dx: sbo; admitted to Dr Banuelos
[2022-08-15 17:03] LABS: Lactic Acid 1.1 mmol/L (0.7-2.1)
[2022-08-15 17:25] LABS: Microscopic, Urine URINE MICROSCOPIC (MICROSCOPIC)
[2022-08-15 17:26] LABS: Appearance,Urine CLEAR (Clear); Bilirubin,Urine Negative (Negative); Blood, Urine 1+ (Negative); Color,Urine STRAW (Yellow); Glucose,Urine (UA) 2+ (Negative); Ketones,Urine 3+ (Negative); Leukocyte Esterase,Urine Negative (Negative); Nitrate,Urine Negative (Negative); PH,Urine 5.5 (5.0-8.5); Protein,Urine TRACE (Negative); Specific Gravity, Urine >= 1.030 (1.005-1.030); Urobilinogen,Urine 0.2 EU/dl (0.2)
--- NOTE | 2022-08-15 17:32 | PC.NURSE ---
Pt is nauseated at this time. pt nurse made aware.
[2022-08-15 17:37] LABS: Amorphous Sediment,Urine Trace /lpf; Bacteria,Urine Trace /lpf; Squamous Epithelial Cell,Urine Occasional #/hpf (0-5); WBC,Urine Occasional #/hpf (0-3)
--- NOTE | 2022-08-15 17:37 | PC.NURSE ---
report called to Soo BARKSDALE
--- NOTE | 2022-08-15 17:59 | PC.NURSE ---
pt arrived to the floor at this time
--- NOTE | 2022-08-15 18:00 | PC.NURSE ---
arrived to room 208 via wheelchair
[2022-08-15 20:40] LABS: Chloride 106 mmol/L (98-107)
[2022-08-15 20:41] LABS: Potassium 4.5 mmoL/L (3.5-5.1); Sodium 140 mmol/L (136-145)
[2022-08-15 20:43] LABS: Alanine Aminotransferase 25 U/L (12-78); Albumin Level 4.3 g/dl (3.5-5.0); Albumin/Globulin Ratio 1.3 (1.1-1.8); Alkaline Phosphatase 76 U/L (38-126); Aspartate Amino Transferase 22 U/L (17-59); Bilirubin,Total 0.7 mg/dl (0.2-1.3); Blood Urea Nitrogen 21 mg/dl (9-20); Carbon Dioxide 11 mmol/L (22.0-30.0); Creatinine Clearance Estimated 174 mL/min (50-200); Estimated Glomerular Filt Rate 116 ml/min (>60); GFR (African American) 140 ML/MIN (>60); Globulin 3.3 g/dL (1.3-3.2); Total Protein,Serum 7.6 g/dl (6.3-8.2)
[2022-08-15 20:44] LABS: Anion Gap 27.5 mEq/L (5-15); Calcium 8.7 mg/dl (8.4-10.2); Glucose 179 mg/dl (74-100)
[2022-08-15 21:19] LABS: POC Glucose,Bedside 227 (70-110)
--- NOTE | 2022-08-15 23:11 | PC.NURSE ---
output from previous shift
--- NOTE | 2022-08-15 23:11 | PC.NURSE ---
Dr. Burrell at bedside consulting on pt
[2022-08-16] VITALS (24 sets, daily range): BP systolic 117–174; BP diastolic 66–93; PULSE 67–101; RESP 12–18; TEMP 36.4–43; O2SAT 92–98; BMI 31.5
[2022-08-16 00:32] LABS: POC Glucose,Bedside 208 (70-110)
--- NOTE | 2022-08-16 04:12 | PC.NURSE ---
No acute changes since previous assessment. Pt has a NG to LWS draining dark, greenish-brown fluid. Pt states his nausea has improved. No c/o abd pain. Checking FSBS Q6hrs. Pt remains on RA. Lungs are CTA. BS active x 4. Pt has 6 ABD lap incisions, drsgs intact. IV infusing per order. Pt has been NPO. Call light in reach. Family at bedside. No needs voiced by pt at this time.
--- NOTE | 2022-08-16 04:16 | PC.NURSE ---
PATIENT AMBULATED FROM BED TO BATHROOM WITH ASSISTANCE X1. PATIENT'S NG HOOKED BACK UP TO SUCTION ONCE HE RETURNED TO BED. PATIENT DENIES ANY PAIN AT PRESENT. NO NEEDS VOICED.
[2022-08-16 06:05] LABS: POC Glucose,Bedside 141 (70-110)
[2022-08-16 06:44] LABS: Basophils % 0.2 % (0.1-2.0); Eosinophils % 0.2 % (0.1-12.0); Hematocrit 51.8 % (42.0-52.0); Hemoglobin 16.6 g/dL (14.1-18.0); Lymphocytes % 6.7 % (10-50); Mean Corpuscular HGB Conc 32.1 g/dL (31.8-35.4); Mean Corpuscular Hemoglobin 32.7 pg (27.0-31.2); Mean Platelet Volume 8.5 fl (7.4-10.4); Monocytes # 0.9 K/mm3 (0.1-1.0); Monocytes % 6.3 % (1.7-9.3); Neutrophils # 12.3 K/mm3 (1.8-7.8); Neutrophils % 86.7 % (37.0-80.0); Platelet Count 386 K/mm3 (142-424); Red Blood Count 5.07 M/mm3 (4.60-6.20); Red Cell Distribution Width 13.9 % (11.5-17.5); White Blood Count 14.2 K/mm3 (4.8-10.8)
[2022-08-16 06:49] LABS: MANUAL DIFFERENTIAL MANUAL DIFFERENTIAL (MANUAL DIFF)
[2022-08-16 06:50] LABS: Chloride 110 mmol/L (98-107); Potassium 3.9 mmoL/L (3.5-5.1); Sodium 142 mmol/L (136-145)
[2022-08-16 06:51] LABS: INR 0.96 (0.9-1.1); Prothrombin Time 10.4 seconds (10.1-12.5)
[2022-08-16 06:53] LABS: Alanine Aminotransferase 22 U/L (12-78); Albumin Level 4.1 g/dl (3.5-5.0); Albumin/Globulin Ratio 1.2 (1.1-1.8); Alkaline Phosphatase 81 U/L (38-126); Anion Gap 25.9 mEq/L (5-15); Aspartate Amino Transferase 20 U/L (17-59); Bilirubin,Total 0.6 mg/dl (0.2-1.3); Blood Urea Nitrogen 21 mg/dl (9-20); Creatinine Clearance Estimated 150 mL/min (50-200); Estimated Glomerular Filt Rate 99 ml/min (>60); GFR (African American) 120 ML/MIN (>60); Globulin 3.3 g/dL (1.3-3.2); Phosphorous 2.2 mg/dl (2.5-4.5); Total Protein,Serum 7.4 g/dl (6.3-8.2)
[2022-08-16 06:54] LABS: Calcium 8.8 mg/dl (8.4-10.2); Glucose 159 mg/dl (74-100); Magnesium 2.6 mg/dl (1.6-2.3)
[2022-08-16 07:00] LABS: Carbon Dioxide 10 mmol/L (22.0-30.0)
[2022-08-16 07:12] LABS: Lymphocytes % 4 % (10-50); Monocytes % 7 % (2-9); Neutrophils % 89 % (42-76); Total Cells Counted 100
[2022-08-16 07:13] LABS: Anisocytosis 1+; Macrocytosis 1+; Platelet Estimate Slight Increase; Poikilocytosis 1+
--- NOTE | 2022-08-16 07:34 | HMH.PHAINT1 ---
Pharmacy Intervention Comments: Home medication reconciliation completed using outpatient pharmacy fill history.
--- NOTE | 2022-08-16 08:31 | P.PNANES_ITS ---
[facility] Anesthesia Record Part II Anesthesia Record Part II Discharge Time: 11:13 Destination: Surgical Day Care (OP Surgery) PACU nurse assessment reviewed?: Yes Patient Condition:: Good Anesthesia Complications:: None Swallowing reflex intact?: Yes Cyanosis?: No Blood Pressure: 132/85 Pulse Rate: 67 Temperature: 98.1 F Mental Status: Alert & Oriented Pain level:: 0 Nausea and/or vomitting:: None Intake, IV Amount: 0
--- NOTE | 2022-08-16 08:48 | HMH.PTWOUND ---
Rehab Inpt Wound Evaluation Rehab IP Wound Evaluation Start: 08/16/22 08:45 Freq: ONCE Status: Active Protocol: Document 08/16/22 08:46 MURALI (Rec: 08/16/22 08:48 MURALI [id number]) Rehab PT Wound Assessment Patient Status Premedicated Prior to Dressing Change No Subjective Subjective Pt had sebaceous cyst removed in june, left open to heal by secondary intention Wound Upper Medial Back Wound Type Incision Wound Length (cm) 3 Wound Width (cm) 2 Wound Depth (cm) 1 Wound Bed Appearance Beefy Red Percentage Granulated (%) 100 Wound Margins Description Well Defined Wound Drainage Description Serous Drainage Amount Scant Drainage Odor No Odor Dressing Status Dry & Intact Packing Type Gauze Pads Primary Dressing Gauze Pad Dressing Change Patient Tolerance Tolerated Well Plan/Recommendation Comment Daily dressing changes per MD order - dry gauze pack - maintain wound care Eval Complexity Eval Charge Codes 92789 - Low Complexity PHYSICIAN CERTIFICATION: I certify the specified therapy services for Wilfred Izquierdo are required, authorized, and reviewed every 30 days.
--- NOTE | 2022-08-16 11:17 | EXP.ACUTE.PN ---
Subjective *Date: 08/16/22 *Time: 12:12 Interval history: Patient reports his nausea is better. Slight improvement in abdominal discomfort. No bowel movements overnight. Voiding independently. Stable on room air. Remains afebrile. Review of labs and vitals this morning shows that he remains tachycardic and has mildly elevated white count. Criteria meets SIRS. I suspect this is secondary to postoperative state and pain but will obtain blood cultures and initiate with empiric antibiotics. Given hemodynamic stability, will give IV fluids but not necessitating 30 ml/kg bolus. at bedside. Questions answered. Patient denies headache, chest pain, shortness of breath, confusion. Medical Exam Vital signs and Labs for Last 24 Hours: Vital Signs Temp Pulse Pulse Resp BP BP BP 08/16/22 08:00 97.8 F 98 H 18 174/76 H 08/16/22 04:15 98.1 F 94 H 16 155/82 H 08/15/22 20:00 98.8 F 89 20 158/80 H 08/15/22 18:05 98.0 F 96 H 18 154/82 H 08/15/22 17:52 92 H 154/82 H 08/15/22 17:30 89 159/77 H 08/15/22 17:15 96 H 164/81 H 08/15/22 17:00 90 155/79 H 08/15/22 18:03 98.2 F 92 H 18 154/82 H 08/15/22 16:30 91 H 153/81 H 08/15/22 16:00 99 H 109/58 L 08/15/22 15:00 91 H 142/74 H 08/15/22 14:42 97 H 161/80 H 08/15/22 14:36 98 H 18 161/80 H 08/16/22 08:32 98.1 F 67 132/85 Pulse Ox 08/16/22 08:00 98 08/16/22 04:15 97 08/15/22 20:00 98 08/15/22 18:05 98 08/15/22 17:52 97 08/15/22 17:30 98 08/15/22 17:15 99 08/15/22 17:00 100 08/15/22 18:03 08/15/22 16:30 100 08/15/22 16:00 98 08/15/22 15:00 96 08/15/22 14:42 98 08/15/22 14:36 100 08/16/22 08:32 Intake and Output 08/15/22 08/16/22 08/16/22 23:59 07:59 15:59 Intake Total 1687 / 1687 0 / 1687 Output Total 600 / 600 150 / 150 0 / 150 Balance -600 / -378 1537 / 1537 0 / 1537 Intake: Intake, Oral Amount 222 / 222 Intake, Total IV Amount 1465 / 1465 0 / 1465 Ringers Solution,Lactated 1,000 1465 / 1465 ml @ 125 mls/hr IV .[facility] Rx #:[id number] Output: Output, Urine Amount 0 / 0 0 / 0 Output, Gastric Drainage Amount 600 / 600 150 / 150 Right Nare 600 / 600 150 / 150 Other: Number of Voids 0 Number of Unmeasured Voids 1 1 Number of Bowel Movements 0 Weight 107.161 kg 105.551 kg Patient Weight 08/16/22 23:59 Weight 105.551 kg Laboratory Results - last 24 hr 08/15/22 14:55: WBC 15.5 H, RBC 5.25, Hgb 17.1, Hct 54.9 H, MCV 104.5 H, MCH 32.6 H, MCHC 31.2 L, RDW 13.7, Plt Count 369, MPV 8.0, Neut % (Auto) 87.2 H, Lymph % (Auto) 6.2 L, [place] % (Auto) 5.6, Eos % (Auto) 0.8, Baso % (Auto) 0.2, Neut # (Auto) 13.5 H, Lymph # (Auto) 1.0, [place] # (Auto) 0.9, Eos # (Auto) 0.1, Baso # (Auto) 0.0, Total Counted 100, Neutrophils % (Manual) 85 H, Lymphocytes % (Manual) 7 L, Monocytes % (Manual) 8, Platelet Estimate Normal, Macrocytosis 1+, Spherocytes 1+, [place] Cells 1+ 08/15/22 14:55: Sodium 135 L, Potassium 4.9, Chloride 104, Carbon Dioxide 9 L*, Anion Gap 26.9 H, BUN 22 H, Creatinine 0.80, Estimated Creat Clear 158, Estimated GFR 99, Est GFR ( Amer) 120, Glucose 207 H, Calcium 8.7, Total Bilirubin 0.7, AST 28, ALT 28, Alkaline Phosphatase 88, Total Protein 7.7, Albumin 4.4, Globulin 3.3 H, Albumin/Globulin Ratio 1.3, Lipase 44 08/15/22 14:55: Acetone Level Moderate 08/15/22 15:34: Specimen Source R radial, O2 % Room air, ABG pH 7.20 L*, ABG pCO2 21.1 L, ABG pO2 99.4, ABG HCO3 8.1 L, ABG Total CO2 8.7 L, ABG O2 Saturation 97, ABG Base Excess -19.9 L, Elder Test Acceptable 08/15/22 16:25: SARS-CoV-2 (PCR) Not detected, Influenza A Untype (PCR) Not detected, Influenza Type B (PCR) Not detected 08/15/22 16:50: Lactate 1.1 08/15/22 17:20: Urine Color Straw, Urine Appearance Clear, Urine pH 5.5, Ur Specific [place] >= 1.030, Urine Protein Trace, Urine Glucose (UA) 2+, Urine Ketones 3+, Urine Blood 1+, U
[2022-08-16 12:14] LABS: POC Glucose,Bedside 231 (70-110)
--- NOTE | 2022-08-16 15:16 | SUR.OPER ---
late entry.... 1432-family updated at this time, family notified that open incision would be made and probable to proceed with bowel resection, will continue to monitor and update as necessary 1434-open abdominal incision made at this time, counts verified and correct prior to incision and verified by APOLONIA Brandon and [facility]
--- NOTE | 2022-08-16 15:18 | SUR.OPER ---
1505-Flagyl 500 ivpb administered per Jennifer,BUSINESS DEVELOPMENT DIRECTOR as ordered per Dr. Frazier
--- NOTE | 2022-08-16 15:56 | EXP.OP.NOTE ---
Date of procedure: 08/16/22 Pre-op Diagnosis:: Possible recurrent hernia Post-op Diagnosis:: Mid small bowel injury status post complex laparoscopic ventral hernia repair Procedure performed:: Diagnostic laparoscopy Open small bowel resection with primary anastomosis Surgeon:: Marc Frazier MD Direct Sales Professional(s):: Dr. Spence Anesthesia: BRANDON Estimated blood loss (mL): 50 Clinical Note:: This is a 57-year-old gentleman who underwent complex laparoscopic ventral hernia repair on August 13. Multiple loops of adhered small bowel were taken down. No definitive injury noted at the time of initial operation; however, dissection was extensive. He presented to the emergency department on postoperative day 2 with increasing nausea and vomiting and vague abdominal pain. A CT scan showed changes consistent with possible immediate recurrence of hernia and the surgical service was consulted. Operative findings:: No recurrence of hernia. Mesh in good position. Very small amount of succus noted in left mid abdomen Increased inflammatory response at site of succus Decision to perform focused open partial small bowel resection was made secondary to potential of continued leakage Operative note:: After informed consent was obtained the patient was taken to the operating room and placed in the supine position. General anesthesia was induced and his abdomen was prepped and draped in a sterile fashion. A Veress needle was placed in the left upper quadrant through (prior 5mm trocar site). The abdomen was insufflated. Under direct visualization an additional 5 mm trochas was placed in the left mid flank (site of prior trocar) and an additional 5 mm trochar was placed in the right upper quadrant (site of prior trocar). Evaluation revealed the mesh to be in good position. No recurrent hernia noted. The entire margin of the mesh was visualized. Evaluation of the intra-abdominal contents did reveal a small trail of succus emanating from the left mid abdomen/small bowel loops. The small bowel loops were significantly inflamed secondary to recent take down during hernia repair (densely adhered to the anterior abdominal wall/prior mesh). Thorough evaluation revealed a focus of increased inflammation and the origination point of the succus. Although significant small bowel rent could not be confirmed, the decision was made to proceed with focused open small bowel resection due to concerns for ongoing leakage. A longitudinal incision was made overlying the site of affected small bowel. A combination of sharp dissection, blunt dissection, and electrocautery was utilized to transect through the external fascial margin. The rectus musculature was retracted as the internal fascial margin was transected. The abdomen was entered and the area of affected small bowel was carefully elevated. Adhesions were taken down with a combination of blunt dissection and Metzenbaum scissor dissection. A very small/focal small bowel injury was confirmed. The surrounding small bowel was elevated. An area of healthy small bowel proximal and distal to the injured site was chosen for transection. A window was made in the mesentery at the proximal and distal margin. The linear stapling device was used to transect the small bowel at both sites. The intervening mesentery was taken down with the Enseal device. The affected small bowel was passed off for pathologic evaluation. The 2 ends of small bowel were brought into side to side apposition and the linear stapling device was utilized to create a common otomy. A TX-60 stapling device was then used to close the common otomy. The crotch was imbricated with interrupted Nurolon. The staple line was also imbricated in a similar manner. The mesenteric defect was closed with running Vicryl suture. The small bowel was then returned to the abdominal cavity. The internal fascial margin was reapproximated with running zero 9 undyed Vicryl. The external
--- NOTE | 2022-08-16 16:12 | P.PNANES_ITS ---
[facility] Anesthesia Record Part I Anesthesia Record I Intake, IV Amount: 1,300 Estimated blood loss (mL): 50 Urine output (mL): 500 Blood Pressure: 117/66 SaO2: 96 Pulse Rate: 99 Respiratory Rate: 16 Temperature: 97.7 F Patient is:: Drowsy Stable to PACU at:: 16:06
--- NOTE | 2022-08-16 16:18 | SUR.PHASEI ---
1645 BS obtained with results of Tonny Rich CRNA notified. No new orders at this time.
[2022-08-16 16:22] LABS: POC Glucose,Bedside 192 (70-110)
--- NOTE | 2022-08-16 16:55 | SUR.PHASEI ---
1638 called and gave detailed report to Rivas Thayer RN 1641 transported via bed to med/surg room. vital signs stable. denies pain at this time. left in stable condition with Rivas Thayer RN at bedside.
[2022-08-16 19:04] LABS: Chloride 116 mmol/L (98-107); Potassium 4.1 mmoL/L (3.5-5.1); Sodium 146 mmol/L (136-145)
[2022-08-16 19:07] LABS: Anion Gap 23.1 mEq/L (5-15); Blood Urea Nitrogen 25 mg/dl (9-20); Carbon Dioxide 11 mmol/L (22.0-30.0); Creatinine Clearance Estimated 134 mL/min (50-200); Estimated Glomerular Filt Rate 87 ml/min (>60); GFR (African American) 105 ML/MIN (>60)
[2022-08-16 19:08] LABS: Calcium 8.4 mg/dl (8.4-10.2); Glucose 231 mg/dl (74-100)
--- NOTE | 2022-08-16 20:35 | PC.NURSE ---
upon rounds by WAYNE Springer, was informed of anion gap 23.1, new orders entered to draw acetone and venous blood gas.
[2022-08-16 20:47] LABS: Acetone, Serum (Rapid) Moderate (None Detect)
[2022-08-16 21:05] LABS: VBG Base Excess -20.1 mmol/L (-2.4-2.3); VBG HCO3 8.9 mmol/L (23-30); VBG Oxygen Saturation 99.1 % (50-70); VBG PCO2 26.6 mmol/L (35-51); VBG PO2 159.2 mmol/L (28-40); VBG Total CO2 9.7 mmol/L (23-27)
[2022-08-16 21:08] LABS: VBG PH 7.14 mmol/L (7.31-7.41)
--- NOTE | 2022-08-16 21:08 | PC.NURSE ---
rené called with lab results, note orders to move pt to stepdown and start dka protocol, pt in no acute distress at this time.
[2022-08-16 21:59] LABS: Chloride 118 mmol/L (98-107); Sodium 147 mmol/L (136-145)
[2022-08-16 22:00] LABS: Potassium 3.9 mmoL/L (3.5-5.1)
[2022-08-16 22:02] LABS: Blood Urea Nitrogen 25 mg/dl (9-20); Creatinine Clearance Estimated 134 mL/min (50-200); Estimated Glomerular Filt Rate 87 ml/min (>60); GFR (African American) 105 ML/MIN (>60)
[2022-08-16 22:03] LABS: Anion Gap 22.9 mEq/L (5-15); Calcium 8.4 mg/dl (8.4-10.2); Glucose 236 mg/dl (74-100)
--- NOTE | 2022-08-16 22:03 | PC.NURSE ---
pt moved to 217 stepdown, report given to joe mendoza.
[2022-08-16 22:20] LABS: Carbon Dioxide 10 mmol/L (22.0-30.0)
--- NOTE | 2022-08-16 22:20 | PC.NURSE ---
notified BERTIN Springer of pt's critical CO2 of 10, no new orders at this time
--- NOTE | 2022-08-16 22:20 | PC.NURSE ---
fsbs 197, started insulin drip per protocol at 4units/hr
[2022-08-16 22:24] LABS: Microscopic,Cath URINE MICROSCOPIC (MICROSCOPIC)
[2022-08-16 22:27] LABS: Acetone, Serum (Rapid) Moderate (None Detect)
[2022-08-16 22:30] LABS: Appearance,Urine/Cath CLEAR (Clear); Bilirubin,Cath Negative (Negative); Blood, Urine/Cath 1+ (Negative); Color,Urine/Cath YELLOW (Yellow); Glucose,Urine/Cath (UA) 2+ (Negative); Ketones,Urine/Cath 3+ (Negative); Leukocyte Esterase,Cath Negative (Negative); Nitrate,Cath Negative (Negative); Protein,Urine/Cath TRACE (Negative); Specific Gravity, Urine/Cath 1.025 (1.005-1.030); Urobilinogen,Cath 0.2 EU/dl (0.2)
[2022-08-16 22:59] LABS: Bacteria,Urine/Cath TRACE /lpf
--- NOTE | 2022-08-16 23:42 | PC.NURSE ---
post op vitals complete
[2022-08-17] VITALS (16 sets, daily range): BP systolic 148–185; BP diastolic 86–106; PULSE 77–97; RESP 12–22; TEMP 36.4–36.7; O2SAT 92–98; BMI 31.4; BMI 31.3
[2022-08-17 00:11] LABS: POC Glucose,Bedside 174 (70-110)
[2022-08-17 02:09] LABS: POC Glucose,Bedside 194 (70-110)
[2022-08-17 02:10] LABS: Anion Gap 20.5 mEq/L (5-15); Blood Urea Nitrogen 25 mg/dl (9-20); Calcium 8.8 mg/dl (8.4-10.2); Carbon Dioxide 15 mmol/L (22.0-30.0); Chloride 119 mmol/L (98-107); Creatinine Clearance Estimated 134 mL/min (50-200); Estimated Glomerular Filt Rate 87 ml/min (>60); GFR (African American) 105 ML/MIN (>60); Glucose 148 mg/dl (74-100); Magnesium 2.7 mg/dl (1.6-2.3); Potassium 3.5 mmoL/L (3.5-5.1)
[2022-08-17 02:11] LABS: Sodium 151 mmol/L (136-145)
--- NOTE | 2022-08-17 02:17 | PC.NURSE ---
notified BERTIN Springer of pt's critical sodium of 151, BERTIN stated will d/c NS @150mL/hr and put in new IVF orders
[2022-08-17 06:31] LABS: Basophils # 0.1 K/mm3 (0-0.2); Eosinophils # 0.1 K/mm3 (0.0-0.4); Eosinophils % 0.6 % (0.1-12.0); Hematocrit 49.1 % (42.0-52.0); Hemoglobin 15.7 g/dL (14.1-18.0); Lymphocytes # 0.6 K/mm3 (0.7-4.5); Lymphocytes % 7.1 % (10-50); Mean Corpuscular HGB Conc 32.1 g/dL (31.8-35.4); Mean Corpuscular Hemoglobin 32.4 pg (27.0-31.2); Mean Corpuscular Volume 100.9 fl (80-94); Mean Platelet Volume 7.9 fl (7.4-10.4); Monocytes # 0.7 K/mm3 (0.1-1.0); Monocytes % 8.7 % (1.7-9.3); Neutrophils # 6.7 K/mm3 (1.8-7.8); Neutrophils % 82.7 % (37.0-80.0); Platelet Count 345 K/mm3 (142-424); Red Blood Count 4.86 M/mm3 (4.60-6.20); White Blood Count 8.1 K/mm3 (4.8-10.8)
[2022-08-17 06:46] LABS: Acetone, Serum (Rapid) Moderate (None Detect)
[2022-08-17 06:47] LABS: Chloride 120 mmol/L (98-107)
[2022-08-17 06:48] LABS: Potassium 3.9 mmoL/L (3.5-5.1)
[2022-08-17 06:50] LABS: Alanine Aminotransferase 17 U/L (12-78); Albumin Level 3.4 g/dl (3.5-5.0); Albumin/Globulin Ratio 1.4 (1.1-1.8); Alkaline Phosphatase 71 U/L (38-126); Aspartate Amino Transferase 21 U/L (17-59); Bilirubin,Total 0.5 mg/dl (0.2-1.3); Blood Urea Nitrogen 23 mg/dl (9-20); Calcium 8.5 mg/dl (8.4-10.2); Carbon Dioxide 14 mmol/L (22.0-30.0); Creatinine Clearance Estimated 171 mL/min (50-200); Estimated Glomerular Filt Rate 116 ml/min (>60); GFR (African American) 140 ML/MIN (>60); Globulin 2.5 g/dL (1.3-3.2); Glucose 171 mg/dl (74-100); Total Protein,Serum 5.9 g/dl (6.3-8.2)
[2022-08-17 06:51] LABS: Magnesium 2.7 mg/dl (1.6-2.3)
[2022-08-17 06:54] LABS: Anion Gap 19.9 mEq/L (5-15); Sodium 150 mmol/L (136-145)
--- NOTE | 2022-08-17 07:01 | EXP.SURG.PN ---
Subjective Patient reports: no new complaints Exam Data for Last 24 hours Vital signs and Labs for Last 24 Hours: Temp Pulse Resp BP Pulse Ox 97.6 F 83 15 162/97 H 95 08/17/22 02:00 08/17/22 06:00 08/17/22 06:00 08/17/22 06:00 08/17/22 06:00 Laboratory Results - last 24 hr 08/16/22 06:00: Total Counted 100, Neutrophils % (Manual) 89 H, Lymphocytes % (Manual) 4 L, Monocytes % (Manual) 7, Platelet Estimate Slight increase, Poikilocytosis 1+, Anisocytosis 1+, Macrocytosis 1+ 08/16/22 06:00: PT 10.4, INR 0.96 08/16/22 06:00: Sodium 142, Potassium 3.9, Chloride 110 H, Carbon Dioxide 10 L, Anion Gap 25.9 H, BUN 21 H, Creatinine 0.80, Estimated Creat Clear 150, Estimated GFR 99, Est GFR ( Amer) 120, Glucose 159 H, Calcium 8.8, Phosphorus 2.2 L, Magnesium 2.6 H, Total Bilirubin 0.6, AST 20, ALT 22, Alkaline Phosphatase 81, Total Protein 7.4, Albumin 4.1, Globulin 3.3 H, Albumin/Globulin Ratio 1.2 08/16/22 11:19: POC Glucose 231 H 08/16/22 13:45: Urine Color Yellow, Urine Appearance Clear, Urine pH 6.0, Ur Specific [place] 1.025, Urine Protein Trace, Urine Glucose (UA) 2+, Urine Ketones 3+, Urine Blood 1+, Urine Nitrate Negative, Urine Bilirubin Negative, Urine Urobilinogen 0.2, Ur Leukocyte Esterase Negative, Urine RBC 5-10, Urine WBC 3-5, Ur Squamous Epith Cells None, Urine Bacteria Trace 08/16/22 16:15: POC Glucose 192 H 08/16/22 18:21: Acetone Level Moderate 08/16/22 18:37: Sodium 146 H, Potassium 4.1, Chloride 116 H, Carbon Dioxide 11 L, Anion Gap 23.1 H, BUN 25 H, Creatinine 0.90, Estimated Creat Clear 134, Estimated GFR 87, Est GFR ( Amer) 105, Glucose 231 H D, Calcium 8.4 08/16/22 19:52: POC Glucose 194 H 08/16/22 20:35: VBG pH 7.14 L, VBG pCO2 26.6 L, VBG pO2 159.2 H, VBG HCO3 8.9 L, VBG Total CO2 9.7 L, VBG O2 Saturation 99.1 H, VBG Base Excess -20.1 L 08/16/22 21:45: Sodium 147 H, Potassium 3.9, Chloride 118 H, Carbon Dioxide 10 L, Anion Gap 22.9 H, BUN 25 H, Creatinine 0.90, Estimated Creat Clear 134, Estimated GFR 87, Est GFR ( Amer) 105, Glucose 236 H, Calcium 8.4, Acetone Level Moderate 08/17/22 00:04: POC Glucose 174 H 08/17/22 01:45: Magnesium 2.7 H 08/17/22 01:45: Sodium 151 H*, Potassium 3.5, Chloride 119 H, Carbon Dioxide 15 L, Anion Gap 20.5 H, BUN 25 H, Creatinine 0.90, Estimated Creat Clear 134, Estimated GFR 87, Est GFR ( Amer) 105, Glucose 148 H D, Calcium 8.8 08/17/22 05:15: Acetone Level Moderate 08/17/22 05:15: WBC 8.1 D, RBC 4.86, Hgb 15.7, Hct 49.1, MCV 100.9 H, MCH 32.4 H, MCHC 32.1, RDW 14.0, Plt Count 345, MPV 7.9, Neut % (Auto) 82.7 H, Lymph % (Auto) 7.1 L, [place] % (Auto) 8.7, Eos % (Auto) 0.6, Baso % (Auto) 1.0, Neut # (Auto) 6.7, Lymph # (Auto) 0.6 L, [place] # (Auto) 0.7, Eos # (Auto) 0.1, Baso # (Auto) 0.1 08/17/22 05:15: Sodium 150 H, Potassium 3.9, Chloride 120 H, Carbon Dioxide 14 L, Anion Gap 19.9 H, BUN 23 H, Creatinine 0.70 D, Estimated Creat Clear 171, Estimated GFR 116, Est GFR ( Amer) 140 D, Glucose 171 H, Calcium 8.5, Magnesium 2.7 H, Total Bilirubin 0.5, AST 21, ALT 17, Alkaline Phosphatase 71, Total Protein 5.9 L, Albumin 3.4 L D, Globulin 2.5, Albumin/Globulin Ratio 1.4 I & O for Last 24 hours: Intake & Output 08/14/22 08/15/22 08/16/22 08/17/22 11:59 11:59 11:59 11:59 Intake Total 1687 / 1687 1600 / 1600 Output Total 1450 / 1450 3680 / 3680 Balance 237 / 237 -2080 / -2080 Weight 232 lb 11.2 oz 232 lb 3 oz Constitutional Constitutional: no acute distress *Routine Respiratory Exam Respiratory: Absent respiratory distress *Routine Cardiovascular Exam Cardiovascular: Absent tachycardia *Routine Abdominal Exam Comments: Dressings intact. Progress Note: A&P Assessment and plan (1) Injury to small intestine: Status: Acute Assessment and plan: No recurrent hernia noted intraoperatively; however, small area of succus secondary to small bowel injury noted (area of small bowel densely noted to be adhesed to prior mesh at time of recent surgery)
--- NOTE | 2022-08-17 07:43 | EXP.ANES.II ---
[facility] Anesthesia Record Part II Anesthesia Record Part II Discharge Time: 16:41 Destination: Medical Surgical Department PACU nurse assessment reviewed?: Yes Patient Condition:: Good Anesthesia Complications:: None Swallowing reflex intact?: Yes Cyanosis?: No Blood Pressure: 152/91 Pulse Rate: 97 Temperature: 97.6 F Mental Status: Alert & Oriented Pain level:: 0 Nausea and/or vomitting:: None Intake, IV Amount: 0
--- NOTE | 2022-08-17 07:57 | PC.NURSE ---
Addendum entered by Lula Chavez RN 08/17/22 11:30: Dr Gross Original Note: Critical value reported to Dr Flores at 0756. sodium 150
--- NOTE | 2022-08-17 08:54 | PC.NURSE ---
Pt is up to chair at this time.
[2022-08-17 09:36] LABS: Chloride 118 mmol/L (98-107)
[2022-08-17 09:37] LABS: Potassium 3.4 mmoL/L (3.5-5.1)
[2022-08-17 09:39] LABS: Blood Urea Nitrogen 22 mg/dl (9-20); Creatinine Clearance Estimated 150 mL/min (50-200); Estimated Glomerular Filt Rate 99 ml/min (>60); GFR (African American) 120 ML/MIN (>60)
[2022-08-17 09:40] LABS: Anion Gap 20.4 mEq/L (5-15); Calcium 8.7 mg/dl (8.4-10.2); Carbon Dioxide 15 mmol/L (22.0-30.0); Glucose 216 mg/dl (74-100)
[2022-08-17 09:44] LABS: Sodium 150 mmol/L (136-145)
--- NOTE | 2022-08-17 10:08 | PC.NURSE ---
Late entry: Pt back to bed at 0972
[2022-08-17 11:27] LABS: POC Glucose,Bedside 153 (70-110)
[2022-08-17 11:27] LABS: POC Glucose,Bedside 123 (70-110)
[2022-08-17 11:27] LABS: POC Glucose,Bedside 164 (70-110)
[2022-08-17 11:27] LABS: POC Glucose,Bedside 199 (70-110)
[2022-08-17 11:27] LABS: POC Glucose,Bedside 195 (70-110)
[2022-08-17 11:27] LABS: POC Glucose,Bedside 197 (70-110)
[2022-08-17 11:27] LABS: POC Glucose,Bedside 152 (70-110)
[2022-08-17 11:27] LABS: POC Glucose,Bedside 173 (70-110)
[2022-08-17 11:27] LABS: POC Glucose,Bedside 137 (70-110)
--- NOTE | 2022-08-17 11:29 | PC.NURSE ---
9759 Dr Gross notified of critical lab value Sodium 150
[2022-08-17 11:30] LABS: Acetone, Serum (Rapid) Moderate (None Detect)
[2022-08-17 12:22] LABS: POC Glucose,Bedside 222 (70-110)
[2022-08-17 13:55] LABS: ABG Base Excess -9.7 mmol/L (-2.4-2.3); ABG HCO3 15.6 mmhg (22.0-26.0); ABG Oxygen Saturation 96 % (90-100); ABG PCO2 27.7 mmhg (35.0-45.0); ABG PH 7.37 mmol/L (7.35-7.45); ABG PO2 77.1 mmhg (80-100); ABG TCO2 16.4 mmhg (23-27)
[2022-08-17 13:56] LABS: Allen's Test ACCEPTABLE; Oxygen ROOM AIR %; Source Right Radial
[2022-08-17 14:55] LABS: Acetone, Serum (Rapid) Moderate (None Detect)
[2022-08-17 14:57] LABS: Blood Urea Nitrogen 22 mg/dl (9-20); Calcium 8.6 mg/dl (8.4-10.2); Carbon Dioxide 15 mmol/L (22.0-30.0); Chloride 120 mmol/L (98-107); Creatinine Clearance Estimated 199 mL/min (50-200); Estimated Glomerular Filt Rate 138 ml/min (>60); GFR (African American) 167 ML/MIN (>60); Glucose 237 mg/dl (74-100); Sodium 149 mmol/L (136-145)
[2022-08-17 15:06] LABS: NT Pro Brain Natriuretic Pep. 287 pg/mL (0-125)
[2022-08-17 15:10] LABS: Phosphorous 1.2 mg/dl (2.5-4.5)
--- NOTE | 2022-08-17 15:34 | PC.NURSE ---
1450: spoke with Dr Gross to clarify fluid orders once d5 1/2 NS @ 200 was complete. new orders d5 1/2 ns @ 100
--- NOTE | 2022-08-17 15:36 | PC.NURSE ---
critical lab results given to Dr Gross at 1515. Phosporus 1.2 new orders received: 1520 d51/2 NS @ 200 x 4 hours then decrease rate to 100ml/hr check BMP and Phosporus level in 4 hours new orders received for phosporus replacement therapy. spoke with Steve in pharmacy at this time as well. pharmacist phone call was transferred to Dr Gross for clarification of orders at this time as well.
[2022-08-17 16:51] LABS: POC Glucose,Bedside 215 (70-110)
[2022-08-17 16:51] LABS: POC Glucose,Bedside 228 (70-110)
--- NOTE | 2022-08-17 17:06 | PC.NURSE ---
pt currently has d5 1/2 ns @ 200 infusing. unable to document on the dec d/t the way it was entered for 1000ml bag but only 800ml ordered. pt was up to the chair for approx 45 mins this shift but requested to return to bed r/t pain. pt has refused pain medications this shift when offered. pt ng tube remains patent to liws. garcia cath draining clear yellow urine. lungs are clear, bowel sounds are hypo in eddie lq. eddie uq active. nad noted. pt agree to ambulate in the room for a short distance this afternoon as well. pt is able to chew gum as well.
--- NOTE | 2022-08-17 17:48 | PC.NURSE ---
pt ambulated 50 - 75 ft in cote with assist times 2
--- NOTE | 2022-08-17 18:18 | EXP.PN ---
Subjective *Date: 08/17/22 *Time: 18:18 Interval history: Date of service August 17, 2022 The patient reports improved nausea and adequate pain control. I am accompanied by several members of the MDR team. His daughter is at bedside. Nursing staff report that he remains afebrile with stable vital signs and saturating appropriately on room air. We have reviewed and discussed this morning labs including a normal white blood cell count and hemoglobin of 15.7. His platelet count is greater than 300,000. His morning BMP identifies an elevated anion gap acidosis. His creatinine is 0.6. Exam Data for Last 24 hours Vital signs and Labs for Last 24 Hours: Temp Pulse Resp BP Pulse Ox 97.7 F 89 20 158/96 H 98 08/17/22 16:00 08/17/22 17:00 08/17/22 14:00 08/17/22 14:00 08/17/22 17:00 Laboratory Results - last 24 hr 08/16/22 13:45: Urine Color Yellow, Urine Appearance Clear, Urine pH 6.0, Ur Specific [place] 1.025, Urine Protein Trace, Urine Glucose (UA) 2+, Urine Ketones 3+, Urine Blood 1+, Urine Nitrate Negative, Urine Bilirubin Negative, Urine Urobilinogen 0.2, Ur Leukocyte Esterase Negative, Urine RBC 5-10, Urine WBC 3-5, Ur Squamous Epith Cells None, Urine Bacteria Trace 08/16/22 18:21: Acetone Level Moderate 08/16/22 18:37: Sodium 146 H, Potassium 4.1, Chloride 116 H, Carbon Dioxide 11 L, Anion Gap 23.1 H, BUN 25 H, Creatinine 0.90, Estimated Creat Clear 134, Estimated GFR 87, Est GFR ( Amer) 105, Glucose 231 H D, Calcium 8.4 08/16/22 19:52: POC Glucose 194 H 08/16/22 20:35: VBG pH 7.14 L, VBG pCO2 26.6 L, VBG pO2 159.2 H, VBG HCO3 8.9 L, VBG Total CO2 9.7 L, VBG O2 Saturation 99.1 H, VBG Base Excess -20.1 L 08/16/22 21:45: Sodium 147 H, Potassium 3.9, Chloride 118 H, Carbon Dioxide 10 L, Anion Gap 22.9 H, BUN 25 H, Creatinine 0.90, Estimated Creat Clear 134, Estimated GFR 87, Est GFR ( Amer) 105, Glucose 236 H, Calcium 8.4, Acetone Level Moderate 08/16/22 21:53: POC Glucose 197 H 08/16/22 22:56: POC Glucose 195 H 08/17/22 00:04: POC Glucose 174 H 08/17/22 00:57: POC Glucose 152 H 08/17/22 01:45: Magnesium 2.7 H 08/17/22 01:45: Sodium 151 H*, Potassium 3.5, Chloride 119 H, Carbon Dioxide 15 L, Anion Gap 20.5 H, BUN 25 H, Creatinine 0.90, Estimated Creat Clear 134, Estimated GFR 87, Est GFR ( Amer) 105, Glucose 148 H D, Calcium 8.8 08/17/22 03:01: POC Glucose 123 H 08/17/22 04:10: POC Glucose 137 H 08/17/22 05:15: Acetone Level Moderate 08/17/22 05:15: WBC 8.1 D, RBC 4.86, Hgb 15.7, Hct 49.1, MCV 100.9 H, MCH 32.4 H, MCHC 32.1, RDW 14.0, Plt Count 345, MPV 7.9, Neut % (Auto) 82.7 H, Lymph % (Auto) 7.1 L, [place] % (Auto) 8.7, Eos % (Auto) 0.6, Baso % (Auto) 1.0, Neut # (Auto) 6.7, Lymph # (Auto) 0.6 L, [place] # (Auto) 0.7, Eos # (Auto) 0.1, Baso # (Auto) 0.1 08/17/22 05:15: Sodium 150 H, Potassium 3.9, Chloride 120 H, Carbon Dioxide 14 L, Anion Gap 19.9 H, BUN 23 H, Creatinine 0.70 D, Estimated Creat Clear 171, Estimated GFR 116, Est GFR ( Amer) 140 D, Glucose 171 H, Calcium 8.5, Magnesium 2.7 H, Total Bilirubin 0.5, AST 21, ALT 17, Alkaline Phosphatase 71, Total Protein 5.9 L, Albumin 3.4 L D, Globulin 2.5, Albumin/Globulin Ratio 1.4 08/17/22 05:15: POC Glucose 164 H 08/17/22 06:04: POC Glucose 153 H 08/17/22 08:21: POC Glucose 173 H 08/17/22 09:20: Sodium 150 H, Potassium 3.4 L, Chloride 118 H, Carbon Dioxide 15 L, Anion Gap 20.4 H, BUN 22 H, Creatinine 0.80, Estimated Creat Clear 150, Estimated GFR 99, Est GFR ( Amer) 120, Glucose 216 H D, Calcium 8.7, Acetone Level Moderate 08/17/22 10:16: POC Glucose 199 H 08/17/22 12:14: POC Glucose 222 H 08/17/22 14:00: Specimen Source Right radial, O2 % Room air, ABG pH 7.37, ABG pCO2 27.7 L, ABG pO2 77.1 L, ABG HCO3 15.6 L, ABG Total CO2 16.4 L, ABG O2 Saturation 96, ABG Base Excess -9.7 L, Elder Test Acceptable 08/17/22 14:21: POC Glucose 228 H 08/17/22 14:25: Sodium 149 H, Potassium 4.0, Chloride 120 H, Carbon Dioxide 15 L, Anion Gap 18.0 H, BUN 22 H, Creatinine 0.60 L D,
[2022-08-17 18:41] LABS: POC Glucose,Bedside 204 (70-110)
--- NOTE | 2022-08-17 18:41 | PC.NURSE ---
nallely changed out this shift
--- NOTE | 2022-08-17 19:22 | PC.NURSE ---
1929 lab orders cancelled per Gian aparicio and retimed for 2199
[2022-08-17 22:32] LABS: Acetone, Serum (Rapid) Small (None Detect); Chloride 120 mmol/L (98-107)
[2022-08-17 22:33] LABS: Potassium 3.3 mmoL/L (3.5-5.1)
[2022-08-17 22:35] LABS: Blood Urea Nitrogen 20 mg/dl (9-20); Creatinine Clearance Estimated 199 mL/min (50-200); Estimated Glomerular Filt Rate 138 ml/min (>60); GFR (African American) 167 ML/MIN (>60)
[2022-08-17 22:36] LABS: Anion Gap 13.3 mEq/L (5-15); Calcium 8.4 mg/dl (8.4-10.2); Carbon Dioxide 20 mmol/L (22.0-30.0); Glucose 210 mg/dl (74-100)
[2022-08-17 22:37] LABS: Magnesium 2.5 mg/dl (1.6-2.3)
[2022-08-17 22:45] LABS: Sodium 150 mmol/L (136-145)
[2022-08-17 22:46] LABS: Phosphorous 1.1 mg/dl (2.5-4.5)
--- NOTE | 2022-08-17 22:46 | PC.NURSE ---
notified BERTIN Springer of pt's critical phos of 1.1 and critical sodium of 150, [employer] TEACHER to place electrolyte replacement orders
--- NOTE | 2022-08-17 23:57 | PC.NURSE ---
Received call from Hospitalist at 2324 that patient needed a dose of Kphos IV and that it was not available to dispense. 2325 - spoke to Kevin Lincoln, conference center manager pharmacist and notified of BERTIN's order. He stated he would contact Cris Abraham, Pharmacist to come in and mix medication. BERTIN Mueller stated to please have the pharmacist mix 2 doses in anticipation of patient needing a repeat dose at 0400 after labs were rechecked. 720 - spoke to Cris Abraham who states she is currently mixing the medication. BERTIN notified.
[2022-08-18] VITALS (12 sets, daily range): BP systolic 145–183; BP diastolic 78–106; PULSE 70–90; RESP 16–25; TEMP 36.5–37.6; O2SAT 94–97; BMI 31.0
--- NOTE | 2022-08-18 03:51 | PC.NURSE ---
k phos still being replaced, discontinuing 0400 timed labs and rescheduling for am labs so that all electrolytes will be replaced by the time labs are drawn
[2022-08-18 04:26] LABS: POC Glucose,Bedside 111 (70-110)
[2022-08-18 04:26] LABS: POC Glucose,Bedside 170 (70-110)
[2022-08-18 04:26] LABS: POC Glucose,Bedside 198 (70-110)
[2022-08-18 04:26] LABS: POC Glucose,Bedside 178 (70-110)
[2022-08-18 04:26] LABS: POC Glucose,Bedside 144 (70-110)
[2022-08-18 06:03] LABS: POC Glucose,Bedside 174 (70-110)
[2022-08-18 06:37] LABS: Chloride 119 mmol/L (98-107); Potassium 3.8 mmoL/L (3.5-5.1)
[2022-08-18 06:40] LABS: Anion Gap 16.8 mEq/L (5-15); Blood Urea Nitrogen 22 mg/dl (9-20); Calcium 8.3 mg/dl (8.4-10.2); Carbon Dioxide 18 mmol/L (22.0-30.0); Creatinine Clearance Estimated 169 mL/min (50-200); Estimated Glomerular Filt Rate 116 ml/min (>60); GFR (African American) 140 ML/MIN (>60); Glucose 194 mg/dl (74-100)
[2022-08-18 06:43] LABS: Sodium 150 mmol/L (136-145)
[2022-08-18 06:46] LABS: Magnesium 2.3 mg/dl (1.6-2.3); Phosphorous 2.7 mg/dl (2.5-4.5)
--- NOTE | 2022-08-18 07:02 | PC.NURSE ---
notified BERTIN Springer of pt's critical sodium of 150, no new orders
[2022-08-18 08:00] LABS: POC Glucose,Bedside 213 (70-110)
--- NOTE | 2022-08-18 08:24 | EXP.SURG.PN ---
Subjective Patient reports: feels better, flatus and no bowel movement Exam Data for Last 24 hours Vital signs and Labs for Last 24 Hours: Temp Pulse Resp BP Pulse Ox 98.9 F 79 16 167/100 H 94 L 08/18/22 08:00 08/18/22 06:00 08/18/22 06:00 08/18/22 06:00 08/18/22 06:00 Laboratory Results - last 24 hr 08/16/22 21:53: POC Glucose 197 H 08/16/22 22:56: POC Glucose 195 H 08/17/22 00:57: POC Glucose 152 H 08/17/22 03:01: POC Glucose 123 H 08/17/22 04:10: POC Glucose 137 H 08/17/22 05:15: POC Glucose 164 H 08/17/22 06:04: POC Glucose 153 H 08/17/22 08:21: POC Glucose 173 H 08/17/22 09:20: Sodium 150 H, Potassium 3.4 L, Chloride 118 H, Carbon Dioxide 15 L, Anion Gap 20.4 H, BUN 22 H, Creatinine 0.80, Estimated Creat Clear 150, Estimated GFR 99, Est GFR ( Amer) 120, Glucose 216 H D, Calcium 8.7, Acetone Level Moderate 08/17/22 10:16: POC Glucose 199 H 08/17/22 12:14: POC Glucose 222 H 08/17/22 14:00: Specimen Source Right radial, O2 % Room air, ABG pH 7.37, ABG pCO2 27.7 L, ABG pO2 77.1 L, ABG HCO3 15.6 L, ABG Total CO2 16.4 L, ABG O2 Saturation 96, ABG Base Excess -9.7 L, Elder Test Acceptable 08/17/22 14:21: POC Glucose 228 H 08/17/22 14:25: Sodium 149 H, Potassium 4.0, Chloride 120 H, Carbon Dioxide 15 L, Anion Gap 18.0 H, BUN 22 H, Creatinine 0.60 L D, Estimated Creat Clear 199, Estimated GFR 138, Est GFR ( Amer) 167 D, Glucose 237 H, Calcium 8.6, Acetone Level Moderate 08/17/22 14:25: NT-Pro-B Natriuret Pep 287 H 08/17/22 14:25: Phosphorus 1.2 L D 08/17/22 16:24: POC Glucose 215 H 08/17/22 18:30: POC Glucose 204 H 08/17/22 20:18: POC Glucose 198 H 08/17/22 21:56: POC Glucose 178 H 08/17/22 22:05: Acetone Level Small 08/17/22 22:05: Sodium 150 H, Potassium 3.3 L, Chloride 120 H, Carbon Dioxide 20 L, Anion Gap 13.3, BUN 20, Creatinine 0.60 L, Estimated Creat Clear 199, Estimated GFR 138, Est GFR ( Amer) 167, Glucose 210 H, Calcium 8.4 08/17/22 22:05: Phosphorus 1.1 L 08/17/22 22:05: Magnesium 2.5 H 08/17/22 23:22: POC Glucose 170 H 08/18/22 02:00: POC Glucose 111 H 08/18/22 04:06: POC Glucose 144 H 08/18/22 05:46: POC Glucose 174 H 08/18/22 06:15: Magnesium 2.3 08/18/22 06:15: Sodium 150 H, Potassium 3.8, Chloride 119 H, Carbon Dioxide 18 L, Anion Gap 16.8 H, BUN 22 H, Creatinine 0.70, Estimated Creat Clear 169, Estimated GFR 116, Est GFR ( Amer) 140, Glucose 194 H, Calcium 8.3 L 08/18/22 06:15: Phosphorus 2.7 D 08/18/22 07:51: POC Glucose 213 H I & O for Last 24 hours: Intake & Output 08/15/22 08/16/22 08/17/22 08/18/22 11:59 11:59 11:59 11:59 Intake Total 1687 / 1687 1600 / 1600 3563 / 3563 Output Total 1450 / 1450 3680 / 3680 3700 / 3700 Balance 237 / 237 -2080 / -2080 -137 / -137 Weight 232 lb 11.2 oz 231 lb 7.766 oz 229 lb 6 oz Microbiology Reports for the Last 24 Hours: Microbiology 08/16/22 08:08 Blood - Random Blood Culture - Preliminary NO GROWTH AFTER 48 HOURS 08/16/22 08:08 Blood - Random Blood Culture - Preliminary NO GROWTH AFTER 48 HOURS Constitutional Constitutional: no acute distress *Routine Respiratory Exam Respiratory: Absent respiratory distress *Routine Cardiovascular Exam Cardiovascular: Absent tachycardia *Routine Abdominal Exam Abdominal: Present soft Comments: Dressings intact. No spreading cellulitis. Progress Note: A&P Assessment and plan (1) Injury to small intestine: Status: Acute Assessment and plan: Overall, doing well status post repeat diagnostic laparoscopy and focused open partial small bowel resection. Volume status improved. Roldan catheter to be removed. Roldan initially maintained secondary to need for accurate I's and O's. Continue to increase ambulation (2) Small bowel obstruction: Status: Acute Assessment and plan: No mechanical obstruction or recurrent hernia noted. Postoperative ileus slowly improving. Nasogastric tube to
--- NOTE | 2022-08-18 08:25 | PC.NURSE ---
NG tube switched to drainage bag at this time per MD order, Roldan catheter removed at this time as well.
--- NOTE | 2022-08-18 13:40 | EXP.PN ---
Subjective *Date: 08/18/22 *Time: 13:44 Interval history: Date of service 08/18/2022 The patient reports improved abdominal pain. I am accompanied by multiple members of the MDR team. He reports that he has an appetite and has been cleared to do sips and chips of ice. He is passing flatus. His NG tube is to gravity. We have reviewed and discussed this morning labs which identify improving anion gap and metabolic acidosis. He tolerated his fluid resuscitation yesterday with no chest discomfort or dyspnea. Exam Data for Last 24 hours Vital signs and Labs for Last 24 Hours: Temp Pulse Resp BP Pulse Ox 97.7 F 84 17 180/96 H 95 08/18/22 10:58 08/18/22 10:58 08/18/22 10:58 08/18/22 10:58 08/18/22 10:58 Laboratory Results - last 24 hr 08/17/22 14:00: Specimen Source Right radial, O2 % Room air, ABG pH 7.37, ABG pCO2 27.7 L, ABG pO2 77.1 L, ABG HCO3 15.6 L, ABG Total CO2 16.4 L, ABG O2 Saturation 96, ABG Base Excess -9.7 L, Elder Test Acceptable 08/17/22 14:21: POC Glucose 228 H 08/17/22 14:25: Sodium 149 H, Potassium 4.0, Chloride 120 H, Carbon Dioxide 15 L, Anion Gap 18.0 H, BUN 22 H, Creatinine 0.60 L D, Estimated Creat Clear 199, Estimated GFR 138, Est GFR ( Amer) 167 D, Glucose 237 H, Calcium 8.6, Acetone Level Moderate 08/17/22 14:25: NT-Pro-B Natriuret Pep 287 H 08/17/22 14:25: Phosphorus 1.2 L D 08/17/22 16:24: POC Glucose 215 H 08/17/22 18:30: POC Glucose 204 H 08/17/22 20:18: POC Glucose 198 H 08/17/22 21:56: POC Glucose 178 H 08/17/22 22:05: Acetone Level Small 08/17/22 22:05: Sodium 150 H, Potassium 3.3 L, Chloride 120 H, Carbon Dioxide 20 L, Anion Gap 13.3, BUN 20, Creatinine 0.60 L, Estimated Creat Clear 199, Estimated GFR 138, Est GFR ( Amer) 167, Glucose 210 H, Calcium 8.4 08/17/22 22:05: Phosphorus 1.1 L 08/17/22 22:05: Magnesium 2.5 H 08/17/22 23:22: POC Glucose 170 H 08/18/22 02:00: POC Glucose 111 H 08/18/22 04:06: POC Glucose 144 H 08/18/22 05:46: POC Glucose 174 H 08/18/22 06:15: Magnesium 2.3 08/18/22 06:15: Sodium 150 H, Potassium 3.8, Chloride 119 H, Carbon Dioxide 18 L, Anion Gap 16.8 H, BUN 22 H, Creatinine 0.70, Estimated Creat Clear 169, Estimated GFR 116, Est GFR ( Amer) 140, Glucose 194 H, Calcium 8.3 L 08/18/22 06:15: Phosphorus 2.7 D 08/18/22 07:51: POC Glucose 213 H I & O for Last 24 hours: Intake & Output 08/15/22 08/16/22 08/17/22 08/18/22 23:59 23:59 23:59 23:59 Intake Total 2987 / 2987 3863 / 3863 0 / 0 Output Total 600 / 600 2550 / 2550 4480 / 4480 1999 Balance -600 / -378 437 / 437 -617 / -617 -1999 Weight 107.161 kg 105.551 kg 105 kg 104.043 kg Microbiology Reports for the Last 24 Hours: Microbiology 08/16/22 08:08 Blood - Random Blood Culture - Preliminary NO GROWTH AFTER 48 HOURS 08/16/22 08:08 Blood - Random Blood Culture - Preliminary NO GROWTH AFTER 48 HOURS Constitutional Constitutional: no acute distress and obese *Routine HEENT Exam Head: Present normocephalic Eye: Present EOMI and PERRL ENT: Present mucous membranes moist *Routine Neck Exam Neck: Present supple, full ROM and trachea midline; Absent JVD or lymphadenopathy *Routine Respiratory Exam Respiratory: Present rhonchi and normal respiratory effort *Routine Cardiovascular Exam Cardiovascular: Present RRR; Absent murmur *Routine Abdominal Exam Abdominal: Present soft and normoactive bowel sounds; Absent distended or guarding *Routine Extremities Exam Extremities: Present full ROM; Absent edema *Routine Skin Exam Skin: Present warm; Absent rash *Routine Neurological Exam Neurological: Present alert, oriented X3, moving all extremities, vision grossly intact, hearing grossly intact and normal speech; Absent sensory deficit or motor deficit Routine Psychiatric Exam Psychiatric: Present normal affect, normal thought process, cooperative, good insight and good judgment Assessment and Plan *Assessmen
[2022-08-18 16:35] LABS: POC Glucose,Bedside 177 (70-110)
[2022-08-18 16:35] LABS: POC Glucose,Bedside 196 (70-110)
--- NOTE | 2022-08-18 17:11 | PC.NURSE ---
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
[2022-08-18 21:02] LABS: POC Glucose,Bedside 166 (70-110)
[2022-08-19] VITALS (7 sets, daily range): BP systolic 136–156; BP diastolic 74–91; PULSE 65–80; RESP 14–16; TEMP 36.4–37.2; O2SAT 94–98; BMI 31.6
--- NOTE | 2022-08-19 05:23 | PC.NURSE ---
Pt A&O x4. Has not c/o any discomfort this shift. 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 No drainage or infection noted. Pt has ambulated in hallway this shift. Tolerated well. He is passing gas. No BM this shift. FSBS 166, 154. Medications administered per mar. Call light within reach.
[2022-08-19 06:19] LABS: POC Glucose,Bedside 154 (70-110)
[2022-08-19 06:47] LABS: Chloride 106 mmol/L (98-107); Sodium 139 mmol/L (136-145)
[2022-08-19 06:48] LABS: Potassium 3.3 mmoL/L (3.5-5.1)
[2022-08-19 06:49] LABS: Basophils % 0.5 % (0.1-2.0); Eosinophils # 0.2 K/mm3 (0.0-0.4); Eosinophils % 2.4 % (0.1-12.0); Hematocrit 45.7 % (42.0-52.0); Hemoglobin 14.8 g/dL (14.1-18.0); Lymphocytes # 1.7 K/mm3 (0.7-4.5); Lymphocytes % 23.7 % (10-50); Mean Corpuscular HGB Conc 32.4 g/dL (31.8-35.4); Mean Corpuscular Hemoglobin 32.2 pg (27.0-31.2); Mean Corpuscular Volume 99.5 fl (80-94); Mean Platelet Volume 7.9 fl (7.4-10.4); Monocytes # 0.4 K/mm3 (0.1-1.0); Monocytes % 6.2 % (1.7-9.3); Neutrophils # 4.7 K/mm3 (1.8-7.8); Neutrophils % 67.2 % (37.0-80.0); Platelet Count 277 K/mm3 (142-424); Red Cell Distribution Width 13.8 % (11.5-17.5)
[2022-08-19 06:50] LABS: Alanine Aminotransferase 15 U/L (12-78); Alkaline Phosphatase 60 U/L (38-126); Aspartate Amino Transferase 22 U/L (17-59); Blood Urea Nitrogen 17 mg/dl (9-20); Creatinine Clearance Estimated 241 mL/min (50-200); Estimated Glomerular Filt Rate 171 ml/min (>60); GFR (African American) 207 ML/MIN (>60)
[2022-08-19 06:51] LABS: Albumin/Globulin Ratio 1.2 (1.1-1.8); Anion Gap 12.3 mEq/L (5-15); Carbon Dioxide 24 mmol/L (22.0-30.0); Globulin 2.5 g/dL (1.3-3.2); Total Protein,Serum 5.5 g/dl (6.3-8.2)
[2022-08-19 06:52] LABS: Glucose 179 mg/dl (74-100)
--- NOTE | 2022-08-19 07:16 | EXP.SURG.PN ---
Subjective Patient reports: no new complaints, feels better, flatus and no bowel movement Narrative: No nausea or vomiting after nasogastric tube removed yesterday Exam Data for Last 24 hours Vital signs and Labs for Last 24 Hours: Temp Pulse Resp BP Pulse Ox 98.8 F 67 16 147/83 H 97 08/19/22 04:00 08/19/22 04:00 08/19/22 04:00 08/19/22 04:00 08/19/22 04:00 Laboratory Results - last 24 hr 08/18/22 07:51: POC Glucose 213 H 08/18/22 11:01: POC Glucose 196 H 08/18/22 15:48: POC Glucose 177 H 08/18/22 20:41: POC Glucose 166 H 08/19/22 05:18: POC Glucose 154 H 08/19/22 05:54: Sodium 139, Potassium 3.3 L, Chloride 106, Carbon Dioxide 24, Anion Gap 12.3, BUN 17, Creatinine 0.50 L D, Estimated Creat Clear 241, Estimated GFR 171, Est GFR ( Amer) 207 D, Glucose 179 H, Calcium 8.0 L, Total Bilirubin 1.0, AST 22, ALT 15, Alkaline Phosphatase 60, Total Protein 5.5 L, Albumin 3.0 L, Globulin 2.5, Albumin/Globulin Ratio 1.2 08/19/22 05:54: WBC 7.0, RBC 4.60, Hgb 14.8, Hct 45.7, MCV 99.5 H, MCH 32.2 H, MCHC 32.4, RDW 13.8, Plt Count 277, MPV 7.9, Neut % (Auto) 67.2, Lymph % (Auto) 23.7, [place] % (Auto) 6.2, Eos % (Auto) 2.4, Baso % (Auto) 0.5, Neut # (Auto) 4.7, Lymph # (Auto) 1.7, [place] # (Auto) 0.4, Eos # (Auto) 0.2, Baso # (Auto) 0.0 I & O for Last 24 hours: Intake & Output 08/16/22 08/17/22 08/18/22 08/19/22 11:59 11:59 11:59 11:59 Intake Total 1687 / 1687 1600 / 1600 3563 / 3563 2599 / 2599 Output Total 1450 / 1450 3680 / 3680 4100 / 4100 2650 / 2650 Balance 237 / 237 -2080 / -2080 -537 / -537 -51 / -51 Weight 232 lb 11.2 oz 231 lb 7.766 oz 229 lb 6 oz 233 lb 7 oz Microbiology Reports for the Last 24 Hours: Microbiology 08/16/22 08:08 Blood - Random Blood Culture - Preliminary NO GROWTH AFTER 48 HOURS 08/16/22 08:08 Blood - Random Blood Culture - Preliminary NO GROWTH AFTER 48 HOURS Constitutional Constitutional: no acute distress *Routine Respiratory Exam Respiratory: Absent respiratory distress *Routine Cardiovascular Exam Cardiovascular: Absent tachycardia *Routine Abdominal Exam Abdominal: Present soft Comments: Incisions clean and dry. No erythema. Progress Note: A&P Assessment and plan (1) Injury to small intestine: Status: Acute Assessment and plan: Overall, doing well status post partial resection. Continue antibiotics secondary to recent mesh placement for hernia repair. Likely transition to Augmentin for discharge to complete course. (2) Small bowel obstruction: Status: Acute Assessment and plan: Postoperative ileus slowly resolving. Clear liquid diet ordered for breakfast Full liquid diet ordered for lunch (if breakfast tolerated) (3) Diabetes mellitus, type 2: Status: Chronic (4) History of hernia surgery: Problem details: hernia surgery x3 Status: Acute
[2022-08-19 07:54] LABS: Magnesium 1.9 mg/dl (1.6-2.3); Phosphorous 2.2 mg/dl (2.5-4.5)
[2022-08-19 11:52] LABS: POC Glucose,Bedside 194 (70-110)
--- NOTE | 2022-08-19 14:56 | EXP.PN ---
Subjective *Date: 08/19/22 *Time: 14:56 Interval history: Date of service August 14, 2022 The patient reports that he tolerated his clear liquid diet this morning and he is scheduled to be administered full liquid diet for lunch. He continues to experience flatus but has not had a bowel movement. Nursing staff report that he remains afebrile with stable vital signs and saturating appropriately on room air. I am accompanied by several members of the MDR team to evaluate the patient. We have reviewed and discussed this morning labs including a low potassium that is being replaced. His anion gap acidosis has resolved. Exam Data for Last 24 hours Vital signs and Labs for Last 24 Hours: Temp Pulse Resp BP Pulse Ox 97.6 F 70 16 136/81 94 L 08/19/22 12:00 08/19/22 12:00 08/19/22 12:00 08/19/22 12:00 08/19/22 12:00 Laboratory Results - last 24 hr 08/18/22 11:01: POC Glucose 196 H 08/18/22 15:48: POC Glucose 177 H 08/18/22 20:41: POC Glucose 166 H 08/19/22 05:18: POC Glucose 154 H 08/19/22 05:54: Sodium 139, Potassium 3.3 L, Chloride 106, Carbon Dioxide 24, Anion Gap 12.3, BUN 17, Creatinine 0.50 L D, Estimated Creat Clear 241, Estimated GFR 171, Est GFR ( Amer) 207 D, Glucose 179 H, Calcium 8.0 L, Total Bilirubin 1.0, AST 22, ALT 15, Alkaline Phosphatase 60, Total Protein 5.5 L, Albumin 3.0 L, Globulin 2.5, Albumin/Globulin Ratio 1.2 08/19/22 05:54: WBC 7.0, RBC 4.60, Hgb 14.8, Hct 45.7, MCV 99.5 H, MCH 32.2 H, MCHC 32.4, RDW 13.8, Plt Count 277, MPV 7.9, Neut % (Auto) 67.2, Lymph % (Auto) 23.7, [place] % (Auto) 6.2, Eos % (Auto) 2.4, Baso % (Auto) 0.5, Neut # (Auto) 4.7, Lymph # (Auto) 1.7, [place] # (Auto) 0.4, Eos # (Auto) 0.2, Baso # (Auto) 0.0 08/19/22 05:54: Phosphorus 2.2 L, Magnesium 1.9 D 08/19/22 11:34: POC Glucose 194 H I & O for Last 24 hours: Intake & Output 08/16/22 08/17/22 08/18/22 08/19/22 23:59 23:59 23:59 23:59 Intake Total 2987 / 2987 3863 / 3863 2599 / 2599 240 / 240 Output Total 2550 / 2550 4480 / 4480 3650 / 3650 1925 / 1925 Balance 437 / 437 -617 / -617 -1051 / -1051 -1685 / -1685 Weight 105.551 kg 105 kg 104.043 kg 105.885 kg Constitutional Constitutional: no acute distress and obese *Routine HEENT Exam Head: Present normocephalic and atraumatic Eye: Present EOMI and PERRL ENT: Present mucous membranes moist *Routine Neck Exam Neck: Present supple and full ROM; Absent JVD or lymphadenopathy *Routine Respiratory Exam Respiratory: Present CTA bilaterally and normal respiratory effort; Absent respiratory distress *Routine Cardiovascular Exam Cardiovascular: Present RRR; Absent murmur *Routine Abdominal Exam Abdominal: Present soft and normoactive bowel sounds *Routine Extremities Exam Extremities: Present full ROM; Absent edema *Routine Skin Exam Skin: Present warm; Absent rash *Routine Neurological Exam Neurological: Present alert, oriented X3, vision grossly intact, hearing grossly intact and normal speech; Absent sensory deficit or motor deficit Routine Psychiatric Exam Psychiatric: Present normal affect and cooperative Assessment and Plan *Assessment and plan (1) Small bowel obstruction: Status: Acute Category: Medical Code(s): K56.609 - Unspecified intestinal obstruction, unspecified as to partial versus complete obstruction (2) Metabolic acidosis: Status: Acute Category: Medical Code(s): E87.20 - Acidosis, unspecified (3) Diabetes mellitus, type 2: Status: Chronic Qualifiers: 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
--- NOTE | 2022-08-19 16:41 | PC.NURSE ---
report given to Marco A Valle RN
[2022-08-19 18:10] LABS: POC Glucose,Bedside 167 (70-110)
[2022-08-19 19:22] LABS: Calcium, Ionized 5.5 mg/dL (4.5-5.6)
[2022-08-19 22:26] LABS: POC Glucose,Bedside 141 (70-110)
[2022-08-20] VITALS: BP 146/87; PULSE 70; RESP 16; TEMP 37.1; O2SAT 92
[2022-08-20 03:56] VITALS: BP 151/87; PULSE 66; RESP 16; TEMP 36.9; O2SAT 94
[2022-08-20 03:59] VITALS: BMI 31.7
[2022-08-20 06:25] LABS: Chloride 99 mmol/L (98-107); Potassium 3.2 mmoL/L (3.5-5.1); Sodium 133 mmol/L (136-145)
[2022-08-20 06:28] LABS: Anion Gap 10.2 mEq/L (5-15); Blood Urea Nitrogen 11 mg/dl (9-20); Calcium 7.8 mg/dl (8.4-10.2); Carbon Dioxide 27 mmol/L (22.0-30.0); Creatinine Clearance Estimated 303 mL/min (50-200); Estimated Glomerular Filt Rate 221 ml/min (>60); GFR (African American) 267 ML/MIN (>60); Glucose 158 mg/dl (74-100)
[2022-08-20 06:28] LABS: POC Glucose,Bedside 156 (70-110)
--- NOTE | 2022-08-20 07:03 | EXP.SURG.PN ---
Subjective Patient reports: no new complaints Narrative: Patient states that he did have a bowel movement yesterday. He has been taking limited full liquids. He denies nausea or vomiting. He does describe some early satiety with feeling full with liquids. Exam Data for Last 24 hours Vital signs and Labs for Last 24 Hours: Temp Pulse Resp BP Pulse Ox 98.4 F 66 16 151/87 H 94 L 08/20/22 03:56 08/20/22 03:56 08/20/22 03:56 08/20/22 03:56 08/20/22 03:56 Laboratory Results - last 24 hr 08/18/22 07:57: Ionized Calcium 5.5 08/19/22 05:54: Phosphorus 2.2 L, Magnesium 1.9 D 08/19/22 11:34: POC Glucose 194 H 08/19/22 17:52: POC Glucose 167 H 08/19/22 21:42: POC Glucose 141 H 08/20/22 05:45: Sodium 133 L, Potassium 3.2 L, Chloride 99, Carbon Dioxide 27, Anion Gap 10.2, BUN 11 D, Creatinine 0.40 L, Estimated Creat Clear 303 H, Estimated GFR 221, Est GFR ( Amer) 267 D, Glucose 158 H, Calcium 7.8 L 08/20/22 06:17: POC Glucose 156 H I & O for Last 24 hours: Intake & Output 08/17/22 08/18/22 08/19/22 08/20/22 11:59 11:59 11:59 11:59 Intake Total 1600 / 1600 3563 / 3563 2839 / 2839 960 / 960 Output Total 3680 / 3680 4100 / 4100 3675 / 3975 1550 / 1550 Balance -2080 / -2080 -537 / -537 -836 / -1136 -590 / -590 Weight 231 lb 7.766 oz 229 lb 6 oz 233 lb 7 oz 234 lb 9 oz *Routine Abdominal Exam Abdominal: Present soft Comments: Incisions clean and intact Progress Note: A&P Assessment and plan (1) Small bowel obstruction: Status: Acute Assessment and plan: Continue ambulation. Possible discharge later (2) Metabolic acidosis: Status: Acute (3) Diabetes mellitus, type 2: Status: Chronic (4) Hypertension: Status: Chronic (5) History of hernia surgery: Problem details: hernia surgery x3 Status: Acute
[2022-08-20 08:00] VITALS: BP 146/86; PULSE 68; PULSE 74; RESP 33; TEMP 36.9; O2SAT 96
--- NOTE | 2022-08-20 10:19 | PC.NURSE ---
courtesy azar norton. pt is lying in the bed and visiting with family. No requests were voiced at this time
[2022-08-20 11:25] LABS: POC Glucose,Bedside 206 (70-110)
[2022-08-20 12:00] VITALS: BP 132/86; PULSE 66; PULSE 71; RESP 18; TEMP 36.6; O2SAT 95
--- NOTE | 2022-08-20 14:31 | EXP.DC.SUM ---
General Admission date:: 08/15/22 Discharge date: 08/20/22 HPI HPI HPI: Mr. Izquierdo is a 57-year-old male with history of diabetes, hypertension, multiple umbilical hernias. Most recently had umbilical hernia repair on Tuesday with takedown of adhesions and placement of mesh. The first 24 hours, patient had some mild surgical pain. Had no nausea or vomiting. However on Tuesday he developed discomfort when eating and pain in his abdomen. He has been passing gas but no bowel movement since last . Today he began having nausea and vomiting. Has been unable to keep anything down. Has not taken his meds since surgery. No blood in his vomit or stool. Feels weak with abdominal pain only on exam/with palpation. Remains afebrile. Denies shortness of breath or chest pain. Having significant belching. at bedside, helps supplement history. Admitted to medicine for further management of small bowel obstruction. Surgery consulted in the ER. NG placed to decompress obstruction/stomach. Hospital Course Hospital Course Hospital Course: The patient was admitted to the medical surgical unit with general surgery consultation. An NG tube was placed and he was made n.p.o. with parenterally administered controlled substance for comfort care. Laboratory studies and cultures were acquired. He was started on IV Zosyn. He was taken to the OR on August 16 for surgical intervention. Hyperosmolar hyperglycemia was identified and treated with fluid resuscitation. His laboratory studies were routinely evaluated and his anion gap closed and his acidosis resolved. His diet was slowly advanced starting with clear liquids and transitioning to GI soft diet. He tolerated his diet well with effective flatus and bowel elimination. He continued with postsurgical wound care. He identified improvement and inquired about discharge home. The patient will be discharged home to follow-up with his primary care physician and general surgeon. He will be discharged home on antibiotic therapy and controlled substance for comfort care. I spent 35 minutes in [id number] time with the patient, spouse at bedside and nursing staff concerning the discharge process. We discussed the admitting diagnoses and the hospital course. We discussed identified improvement and the patient's desire to be discharged. We reviewed inpatient studies and imaging. The patient voiced understanding on the importance of follow-up with his primary care provider and general surgeon. The patient plans to be compliant with the medication regimen prescribed. He understands that he can return to the emergency department with any sudden changes or concerns. Exam Data for Last 24 hours Vital signs and Labs for Last 24 Hours: Temp Pulse Resp BP Pulse Ox 97.9 F 71 18 132/86 95 08/20/22 12:00 08/20/22 12:00 08/20/22 12:00 08/20/22 12:00 08/20/22 12:00 Laboratory Results - last 24 hr 08/18/22 07:57: Ionized Calcium 5.5 08/19/22 17:52: POC Glucose 167 H 08/19/22 21:42: POC Glucose 141 H 08/20/22 05:45: Sodium 133 L, Potassium 3.2 L, Chloride 99, Carbon Dioxide 27, Anion Gap 10.2, BUN 11 D, Creatinine 0.40 L, Estimated Creat Clear 303 H, Estimated GFR 221, Est GFR ( Amer) 267 D, Glucose 158 H, Calcium 7.8 L 08/20/22 06:17: POC Glucose 156 H 08/20/22 11:09: POC Glucose 206 H I & O for Last 24 hours: Intake & Output 08/17/22 08/18/22 08/19/22 08/20/22 23:59 23:59 23:59 23:59 Intake Total 3863 / 3863 2599 / 2599 1200 / 1200 480 / 480 Output Total 4480 / 4480 3650 / 3650 2575 / 2575 600 / 600 Balance -617 / -617 -1051 / -1051 -1375 / -1375 -120 / -120 Weight 105 kg 104.043 kg 105.885 kg 106.396 kg Constitutional Constitutional: no acute distress, obese and cooperative *Routine HEENT Exam Head: Present normocephalic Eye: Present EOMI and PERRL ENT: Present mucous membranes moist *Routine Neck Exam Neck: Present supple, full ROM and trachea midline; Absent JVD, ly
--- NOTE | 2022-08-20 15:31 | HMH.PHAINT1 ---
Pharmacy Intervention Comments: DISCHARGE MEDICATION COUNSELING PROVIDED. DISCUSSED STOPPING THE MELOXICAM AND STARTING AUGMENTIN (ANTIBIOTIC, THREE TIMES DAILY, TAKE WITH FOOD TO CUT BACK ON UPSET STOMACH) AND NORCO FOR PAIN. PATIENT STATED THAT HE HAS BEEN ON THE AUGMENTIN BEFORE AND THAT HE CALLED CLINIC PHARMACY TO CANCEL THE NORCO DUE TO HAVING SOME FROM PREVIOUS SURGERIES. PATIENT VERBALIZED NO QUESTIONS AT THIS TIME.
[2022-08-20 18:10] LABS: Calcium, Ionized 5.6 mg/dL (4.5-5.6)
--- NOTE | 2022-08-23 14:44 | CARE MANAGER ---
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 No new problems noted.
== END 2022-08-20 15:40 | disposition home or self-care (01) | DRG 330 ==
LOC: ER 16:49 → 2ND 21:17
PROVIDERS: Family Medicine; Nurse Practitioner Family; Surgery; Admitting Provider Internal Medicine Adolescent Medicine; Emergency Provider Student in an Organized Health Care Education/Training Program; PCP Family Medicine; Visit Provider Internal Medicine Adolescent Medicine
PROC: 0DB80ZZ Excision of Small Intestine, Open Approach (ICD-10-PCS; CPT 49320; principal; 2022-08-16 13:15)
DX: K91.89 Other postprocedural complications and disorders of digestive system (principal); E87.20 Acidosis, unspecified; K56.609 Unspecified intestinal obstruction, unspecified as to partial versus complete obstruction; S36.409A Unspecified injury of unspecified part of small intestine, initial encounter; E11.9 Type 2 diabetes mellitus without complications; Z86.16 Personal history of COVID-19; I10 Essential (primary) hypertension; Z79.84 Long term (current) use of oral hypoglycemic drugs; Z53.31 Laparoscopic surgical procedure converted to open procedure
CPT/HCPCS: 44120; 36415; 71045; 74177; 80048; 80053; 81001; 82009; 82330; 82803; 82962; 83605; 83690; 83735; 83880; 84100; 85007; 85025; 85610; 87040; 88307; 99285; C9803; J0696; J2405; J2543; Q9967; U0003; U0005

== ENCOUNTER → 2022-09-28 14:48 | Outpatient (CLI) | payer OTHER, SELFPAY ==
[2022-09-28 16:17] VITALS: BMI 32.9
== END ==
PROVIDERS: PCP Family Medicine; Visit Provider Family Medicine
DX: Z71.3 Dietary counseling and surveillance (principal); E11.9 Type 2 diabetes mellitus without complications
CPT/HCPCS: 97802

== ENCOUNTER 2023-03-18 09:06 | Emergency (ER) | payer BC, SELFPAY ==
[2023-03-18 09:15] VITALS: BP 131/78; PULSE 89; RESP 18; TEMP 37.1; O2SAT 98; BMI 38.9
[2023-03-18 09:30] VITALS: BP 131/78; PULSE 89; RESP 18; TEMP 37.1; O2SAT 98
--- NOTE | 2023-03-18 09:36 | EXP.UTC ---
Discharge Plan Disposition Patient Disposition: Home, Self-Care Condition: Good Prescriptions Prescriptions: New prednisone 20 mg tablet 20 mg PO BID Qty: 10 0RF fluticasone propionate [Flonase Allergy Relief] 50 mcg/actuation spray,suspension 1 spray intranasal DAILY PRN (Reason: allergy symptoms) Qty: 16 0RF Rx Instructions: administer into each nostril olopatadine [Pataday Once Daily Relief] 0.2 % drops 1 drp ophthalmic (eye) DAILY PRN (Reason: itching) Qty: 2.5 0RF No Action meloxicam 15 mg tablet 15 mg PO DAILY Label Comments: TAKE ONE TABLET BY MOUTH EVERY DAY --TAKE WITH FOOD-- lisinopril 10 mg tablet 10 mg PO DAILY Label Comments: TAKE ONE TABLET BY MOUTH EVERY DAY pravastatin 20 mg tablet 20 mg PO HS Label Comments: TAKE ONE TABLET BY MOUTH EVERY DAY metformin 500 mg tablet extended release 24 hr 500 mg PO DAILY Label Comments: TAKE FOUR TABLETS BY MOUTH EVERY DAY with breakfast Jardiance 25 mg tablet 25 mg PO DAILY Label Comments: TAKE ONE TABLET BY MOUTH EVERY DAY Ozempic 1 mg/dose (4 mg/3 mL) pen injector 0.5 mg SQ WEEKLY cetirizine [Zyrtec] 10 mg Tablet 10 mg PO DAILY Referrals Follow up/Referrals: Octavio Carnes MD [Primary Care Provider] - See instructions Activity Restrictions/Add. Instructions Additional Instructions/Restrictions: Monitor sugar over the weekend Increase fluids Return to [facility] if not improving Instructions Patient Instructions: DI for Allergic Rhinitis Discharge ED Provider: Brittany Bland [facility] HPI General Stated complaint: chest congestion, cough, sore throat Mode of Arrival: Ambulatory Source of Information: Patient Limitations: No Limitations Time Seen by Provider: 03/18/23 09:36 Description of Symptoms (Recalled from Triage Doc. by RN): PATIENT C/O SINUS DRAINGE, PRODUCTIVE COUGH, AND SNEEZING X 4 DAYS HEENT Symptoms (Recalled from RN notes): Yes Resp Symptoms (Recalled from RN notes): Yes Skin Symptoms (Recalled from RN notes): No MS Symptoms (Recalled from RN notes): No Functional Status (Recalled from RN notes): WNL History of Present Illness Provider Complaint: Patient has 3-4 day history itchy/watery eyes, runny nose, scratchy throat, drainage in throat. Neighbors have been mowing hay. No fever. No ear pain. Feels worse when he wakes up in the morning. Not sleeping well. Takes Zyrtec in am daily - does seem to help but feels worse again by evening. Onset (ago): day(s) (4) Relieving factors: none Exacerbating factors: none Associated symptoms: denies other symptoms Treatments prior to arrival: other (Zyrtec, Nyquil) Related Data Home Medications Medication Instructions Recorded Confirmed cetirizine 10 mg tablet (Zyrtec) 10 mg PO DAILY Allergy symptoms 03/18/23 03/18/23 empagliflozin 25 mg tablet 25 mg PO DAILY Diabetes 03/18/23 03/18/23 (Jardiance) lisinopril 10 mg tablet 10 mg PO DAILY Hypertension 03/18/23 03/18/23 meloxicam 15 mg tablet 15 mg PO DAILY Pain 03/18/23 03/18/23 metformin 500 mg tablet,extended 500 mg PO DAILY Diabetes 03/18/23 03/18/23 release 24 hr pravastatin 20 mg tablet 20 mg PO HS Cholesterol 03/18/23 03/18/23 semaglutide 1 mg/dose (4 mg/3 mL) 0.5 mg SQ WEEKLY Diabetes 03/18/23 03/18/23 subcutaneous pen injector (Ozempic) Previous Rx's Medication Instructions Recorded fluticasone propionate 50 1 spray intranasal DAILY PRN 03/18/23 mcg/actuation nasal allergy symptoms #16 grams spray,suspension (Flonase Allergy Relief) olopatadine 0.2 % eye drops 1 drp ophthalmic (eye) DAILY PRN 03/18/23 (Pataday Once Daily Relief) itching #2.5 mL prednisone 20 mg tablet 20 mg PO BID #10 tabs 03/18/23 Allergies Allergy/AdvReac Type Severity Reaction Status Date / Time No Known Drug Allergies Allergy Unknown Verified 09/01/22 09:56 [NKDA] Worker's Comp Is this a Worker's Comp case?: No PFSH PFSH D
== END 2023-03-18 10:05 | disposition home or self-care (01) ==
PROVIDERS: Emergency Provider Physician Assistant; PCP Family Medicine
DX: J30.9 Allergic rhinitis, unspecified (principal); E11.9 Type 2 diabetes mellitus without complications; I10 Essential (primary) hypertension; E78.5 Hyperlipidemia, unspecified; G47.30 Sleep apnea, unspecified; Z79.84 Long term (current) use of oral hypoglycemic drugs
CPT/HCPCS: 96372; 99212; 99214; G0463; J1040

== ENCOUNTER 2023-03-22 06:30 | Day surgery (SDC) | payer BC, SELFPAY ==
[2023-03-17 09:17] VITALS: BMI 32.5
[2023-03-22] VITALS (8 sets, daily range): BP systolic 82–123; BP diastolic 49–85; PULSE 54–90; RESP 16–18; TEMP 36.1–36.7; O2SAT 90–95
--- NOTE | 2023-03-22 07:09 | P.PN_ITS ---
[facility] Disclaimer: The information contained in this section may have been updated after the patient was seen, as this information can be updated by other users. Medical History Diabetes mellitus, type 2 History of COVID-19 Hyperlipidemia Hypertension Kidney stone Sleep apnea Surgical History History of bowel resection History of hernia surgery History of incision and drainage History of knee replacement Family History Other No significant family history Social History Smoking Status: Never smoker second hand exposure: No alcohol intake: never substance use type: denies use current occupational status: employed Travel in the last 8 weeks: None household members: spouse housing: house lives independently: No education level: college current occupational exposures/hazards: No caffeine: Yes special angelique needs: No do you feel safe at home: Yes victim of physical abuse: No victim of emotional abuse: No victim of sexual abuse: No would you like helpful sources: No [facility] Anesthesia Checklist Patient Identification Patient Identification: Arm Band and Verbal (Name & ) Structural Data Admitted From: Home Planned Operative Procedure/s: Colonoscopy Consent for Planned Operative Procedure(s) Verified: Yes NPO Status Verified Time NPO: 00:00 Additional verifications Anesthesia Reactions: No Hx Blood Transfusions: No Blood Transfusion Reaction: No Airway Assessment C-Spine Mobility Assessed: Yes TMJ Mobility Assessed: Yes Dentition: Good Dentition Neurological Assessment Level of Consciousness: Awake Hx Seizures: No Numbness or tingling in extremities: No Anesthesia Plan Anesthesia Risk discussed: Yes Anesthesia Plan: Verified ASA Class: III Anesthesia Type: MAC
--- NOTE | 2023-03-22 07:12 | P.PCN_ITS ---
Procedure: Date: 03/22/23 Patient Date of :: 1965 Procedure Performed:: Colonoscopy with polypectomy Indications:: History of colon polyps Performing Provider:: Marc Frazier MD Referring Provider:: . Sedation:: Monitored anesthesia care Procedure:: After informed consent was obtained the patient was taken to the endoscopy suite. Sedation ensued after the patient was transferred to the left lateral d ecubitus position. Pulse, blood pressure, and oxygen saturation were monitored throughout the procedure. Digital rectal exam revealed no significant abnormality. The colonoscope was placed in position. The entire colon was evaluated. The colonoscope was carefully removed and the patient was transferred to recovery in stable condition. Please see findings and specimens below for detail. Findings:: Bowel preparation moderate to poor Hemorrhoidal cushions Moderate lack of relaxation Polyps (see specimens) Specimens:: 9 mm sessile polyp and adjacent polyp of the distal transverse colon (cold snare) Recommendations:: Follow-up pathology Timing of repeat colonoscopy is pending pathology but likely be between 1-2 years with extended/alternate bowel preparation Complications:: No immediate with the exception of limited bowel preparation Estimated blood obtained (mL): 1
[2023-03-22 08:14] LABS: POC Glucose,Bedside 134 (70-110)
== END 2023-03-22 10:19 | disposition home or self-care (01) ==
PROVIDERS: PCP Family Medicine; Visit Provider Surgery
PROC: 0DJD8ZZ Inspection of Lower Intestinal Tract, Via Natural or Artificial Opening Endoscopic (ICD-10-PCS; CPT 45385; principal; 2023-03-22 07:30)
DX: Z12.11 Encounter for screening for malignant neoplasm of colon (principal); D12.3 Benign neoplasm of transverse colon; Z86.010 Personal history of colon polyps; E11.9 Type 2 diabetes mellitus without complications; Z79.899 Other long term (current) drug therapy
CPT/HCPCS: 45385; 82962; J2704

== ENCOUNTER 2024-05-05 21:11 | Emergency (ER) | payer BC, SELFPAY ==
[2024-05-05 21:12] VITALS: BP 145/79; PULSE 68; RESP 20; TEMP 36.4; O2SAT 97; BMI 31.8
[2024-05-05 21:28] LABS: Basophils # 0.1 K/mm3 (0-0.2); Basophils % 0.7 % (0.1-2.0); Eosinophils # 0.2 K/mm3 (0.0-0.4); Eosinophils % 1.5 % (0.1-12.0); Hematocrit 51.6 % (42.0-52.0); Hemoglobin 17.7 g/dL (14.1-18.0); Lymphocytes # 1.9 K/mm3 (0.7-4.5); Lymphocytes % 16.3 % (10-50); Mean Corpuscular HGB Conc 34.4 g/dL (31.8-35.4); Mean Corpuscular Hemoglobin 32.7 pg (27.0-31.2); Mean Corpuscular Volume 95.2 fl (80-94); Mean Platelet Volume 7.6 fl (7.4-10.4); Monocytes # 0.6 K/mm3 (0.1-1.0); Monocytes % 5.4 % (1.7-9.3); Neutrophils # 8.8 K/mm3 (1.8-7.8); Neutrophils % 76.2 % (37.0-80.0); Platelet Count 198 K/mm3 (142-424); Red Blood Count 5.42 M/mm3 (4.60-6.20); White Blood Count 11.5 K/mm3 (4.8-10.8)
--- NOTE | 2024-05-05 21:29 | CT_ITS ---
PROCEDURE INFORMATION: Exam: CT Abdomen And Pelvis With Contrast Exam date and time: 05/05/2024 9:42 PM Age: 58 years old Clinical indication: Other: Large incisional hernia; Additional info: Large incisional hernia, pain, irreducible TECHNIQUE: Imaging protocol: Computed tomography of the abdomen and pelvis with contrast. Radiation optimization: All CT scans at this facility use at least one of these dose optimization techniques: automated exposure control; mA and/or kV adjustment per patient size (includes targeted exams where dose is matched to clinical indication); or iterative reconstruction. Contrast material: ISOVUE; Contrast volume: 75 ml; Contrast route: IV; COMPARISON: CT ABDOMEN PELVIS W CON 15/08/2022 15:20 FINDINGS: Liver: Normal. No mass. Gallbladder and biliary ducts: Normal. No calcified stones. No ductal dilation. Pancreas: Normal. No ductal dilation. Spleen: Normal. No splenomegaly. Adrenal glands: Normal. No mass. Kidneys and ureters: Low attenuation renal lesions measuring up to 1.6 cm in diameter are incompletely characterized, but are likely cysts. No followup imaging is warranted. Stomach and bowel: Mild colonic diverticulosis without diverticulitis. Dilated segments of small bowel with a transition point along the left side of the anterior abdominal wall hernia on image 84 series 3. Appendix: No evidence of appendicitis. Intraperitoneal space: Unremarkable. No free air. No significant fluid collection. Vasculature: The arteries demonstrate mild atherosclerotic disease. Lymph nodes: Unremarkable. No enlarged lymph nodes. Urinary bladder: Unremarkable as visualized. Reproductive: Unremarkable as visualized. Bones/joints: Old bilateral rib fractures. Soft tissues: Unremarkable. Other findings: Stigmata of old granulomatous disease. IMPRESSION: Findings suggest small bowel obstruction, possibly high-grade, secondary to adhesions at the mouth of the anterior abdominal wall hernia. Incarcerated hernia is possible in the appropriate clinical setting. COMMENTS: Consistent with the [employer]'s Incidental Findings Committee white paper (J Am Rao Radiol 2018): Any incidental renal lesion less than 1 cm or classified as too small to characterize, or any incidental cystic renal lesion characterized as simple-appearing, is likely benign. No follow-up imaging is recommended for these lesions per consensus recommendations based on imaging criteria.
--- NOTE | 2024-05-05 21:29 | HMH.EDGENADL ---
Discharge Plan Disposition Patient Disposition: Xfer Short-Term Hosp Condition: Good Prescriptions Prescriptions: No Action Mounjaro 5 mg/0.5 mL pen injector 5 mg SQ Patient Comments: INJECT THE CONTENTS OF 1 PEN (5 MG / 0.5ML) SUBCUTANEOUSLY ONCE A WEEK meloxicam 15 mg tablet 15 mg PO DAILY Patient Comments: TAKE ONE TABLET BY MOUTH EVERY DAY --TAKE WITH FOOD-- lisinopril 10 mg tablet 10 mg PO DAILY Patient Comments: TAKE ONE TABLET BY MOUTH EVERY DAY pravastatin 20 mg tablet 20 mg PO HS Patient Comments: TAKE ONE TABLET BY MOUTH EVERY DAY metformin 500 mg tablet extended release 24 hr 500 mg PO DAILY Patient Comments: TAKE FOUR TABLETS BY MOUTH EVERY DAY with breakfast Jardiance 25 mg tablet 25 mg PO DAILY Patient Comments: TAKE ONE TABLET BY MOUTH EVERY DAY Ozempic 1 mg/dose (4 mg/3 mL) pen injector 0.5 mg SQ WEEKLY cetirizine [Zyrtec] 10 mg Tablet 10 mg PO DAILY Referrals Follow up/Referrals: Octavio Carnes MD [Primary Care Provider] - See instructions Clinical Impressions Clinical Impression: Incarcerated incisional hernia Stand Alone Forms Stand Alone Forms: Transfer Record - ED Instructions Patient Instructions: DI for Acute Abdominal Pain Discharge ED Provider: Alycia Vega General Adult HPI General Chief complaint: Abdominal Pain Stated complaint: hernia problems Time Seen by Provider: 05/05/24 21:19 Mode of Arrival: Ambulatory Source of Information: Patient Limitations: No Limitations Description of Symptoms (Recalled from ER Triage Doc. by RN): Pt. presented to the ED with c/o left side hernia that popped out about 4 hours ago. Pt. states he wears a brace but it is not helping. Pt. states that he has tried to push the hernia back in but it is not going back in. c/o pain to left lower abd. Hernia visable History of Present Illness HPI narrative: This patient is a 58-year-old male with a history of recurrent umbilical and incisional ventral hernias who has had multiple operations in the past presenting to the emergency department for evaluation with concern for inability to reduce his hernia. This been going on for about 4 hours now. He states he is awaiting outpatient elective repair in [place] after referral from Dr. Frazier, who performed his prior surgeries. He notes that he has some symptoms of acid reflux, but no nausea, vomiting, changes in bowel movements, or changes in urination. No other concerns noted at this time. Related Data Home Medications Medication Instructions Recorded Confirmed cetirizine 10 mg tablet (Zyrtec) 10 mg PO DAILY Allergy symptoms 03/18/23 11/04/23 empagliflozin 25 mg tablet 25 mg PO DAILY Diabetes 03/18/23 11/04/23 (Jardiance) lisinopril 10 mg tablet 10 mg PO DAILY Hypertension 03/18/23 11/04/23 meloxicam 15 mg tablet 15 mg PO DAILY Pain 03/18/23 11/04/23 metformin 500 mg tablet,extended 500 mg PO DAILY Diabetes 03/18/23 11/04/23 release 24 hr pravastatin 20 mg tablet 20 mg PO HS Cholesterol 03/18/23 11/04/23 semaglutide 1 mg/dose (4 mg/3 mL) 0.5 mg SQ WEEKLY Diabetes 03/18/23 11/04/23 subcutaneous pen injector (Ozempic) tirzepatide 5 mg/0.5 mL 5 mg SQ 11/04/23 11/04/23 subcutaneous pen injector (Mounjaro) Allergies Allergy/AdvReac Type Severity Reaction Status Date / Time No Known Drug Allergies Allergy Unknown Verified 11/04/23 09:42 [NKDA] [facility] Disclaimer: The information contained in this section may have been updated after the patient was seen, as this information can be updated by other users. Medical History Encounter for screening colonoscopy Small intestine injury Sleep apnea Hyperlipidemia Hypertension Kidney stone History of COVID-19 Diabetes mellitus, type 2 Surgical History History of hernia surgery History of colonoscopy History of bowel resection History of incision and drainage History of knee replacement Family History Other No significant family history Social History Smoking Status: Never smoker second hand exposure: No alcohol intake: never substance use type: denies use current occupational status: employed Travel in the last 8 weeks: None household members: spouse housing: house lives independently: No education level: college current occupational exposures/hazards: No caffeine: Yes special angelique needs: No do you feel safe at home: Yes victim of physical abuse: No victim of emotional abuse: No victim of sexual abuse: No would you like helpful sources: No ROS Obtained: Yes All systems reviewed & no additional complaints except as documented Physical Exam General General appearance: alert and in no apparent distress Head Head exam: atraumatic and normocephalic Eye Eye exam: Present normal appearance, PERRL and EOMI ENT ENT exam: Present normal exam, normal oropharynx, mucous membranes moist and normal external ear exam Neck Neck exam: Present normal inspection, full ROM and trachea midline; Absent tenderness Chest Chest inspection: Present normal inspection and symmetric chest wall rise; Absent tenderness Respiratory Respiratory exam: Present normal lung sounds bilaterally; Absent respiratory distress, wheezes, stridor or accessory muscle use Cardiovascular Cardiovascular exam: Present regular rate and normal rhythm Abdominal Exam Abdominal exam: Present soft and hernia (large ventral incisional hernia that is soft with no overlying skin color changes, but it is irreducible. ); Absent distention, tenderness or guarding Extremities Exam Extremities exam: Present normal inspection, full ROM and normal capillary refill; Absent tenderness or edema Back Exam Back exam: Present normal inspection and full ROM; Absent tenderness Neurological Exam Neurological exam: Present alert, oriented X3, CN II-XII intact and normal gait; Absent motor sensory deficit Psychiatric Psychiatric exam: Present normal affect and normal mood Skin Skin exam: Present warm and dry Medical Decision Making Medical Records Medical records reviewed: Yes I reviewed the patient's medical records. Farzad Inquiry Pt receiving controlled substance: No Vital Signs: 05/05/24 21:12 05/05/24 21:30 05/05/24 22:00 Temperature 97.5 F L Temperature Source Oral Pulse Rate 72 71 Pulse Rate [Right] 68 Respiratory Rate 20 16 18 Blood Pressure 132/71 102/84 L Blood Pressure [Right Arm] 145/79 H Blood Pressure Mean [Right Arm] 101 Blood Pressure Source [Right Arm] Automatic Cuff Blood Pressure Position [Right Arm] Supine 02 Sat by Pulse Oximetry 97 96 97 Oxygen Delivery Method Room Air Room Air Room Air Lab Data Lab results reviewed: Yes I reviewed the patient's lab results. Lab Results 05/05/24 21:20: WBC 11.5 H, RBC 5.42, Hgb 17.7, Hct 51.6, MCV 95.2 H, MCH 32.7 H, MCHC 34.4, RDW 14.0, Plt Count 198, MPV 7.6, Neut % (Auto) 76.2, Lymph % (Auto) 16.3, Mcleod % (Auto) 5.4, Eos % (Auto) 1.5, Baso % (Auto) 0.7, Neut # (Auto) 8.8 H, Lymph # (Auto) 1.9, Mcleod # (Auto) 0.6, Eos # (Auto) 0.2, Baso # (Auto) 0.1, Sodium 137, Potassium 3.9, Chloride 100, Carbon Dioxide 29, Anion Gap 11.9, BUN 18, Creatinine 0.80, Estimated Creat Clear 150, Estimated GFR 99, Est GFR ( Amer) 120, Glucose 132 H, Lactate 1.5, Calcium 10.3 H, Total Bilirubin 0.8, AST 34, ALT 33, Alkaline Phosphatase 88, Total Protein 8.1 D, Albumin 4.8, Globulin 3.3 H, Albumin/Globulin Ratio 1.5 05/05/24 21:20 05/05/24 21:20 Orders (Tests/Meds): ED MEDICATIONS Generic Name Dose Route Start Last Admin Trade Name Freq PRN Reason Stop Dose Admin Lactated Ringer's 1,000 mls @ 999 mls/hr 05/05/24 22:30 Lactated Ringer's 1000 Ml Bag IV 05/05/24 23:30 .Q1H1M ONE Sodium Chloride 10 ml 05/05/24 21:58 05/05/24 22:00 Sodium Chloride 0.9% 10ml Syr (Rad Only) IV 06/04/24 21:57 10 ml NEEDED PRN Administration Maintain IV Site Discontinued Medications Generic Name Dose Route Start Last Admin Trade Name Freq PRN Reason Stop Dose Admin Fentanyl Citrate 50 mcg 05/05/24 21:28 05/05/24 21:32 Fentanyl 100mcg/2ml Vial IV 05/05/24 21:29 50 mcg ONCE ONE Administration Hydromorphone HCl 1 mg 05/05/24 22:01 05/05/24 22:03 Hydromorphone 2mg/Ml Syringe IV 05/05/24 22:02 1 mg ONCE ONE Administration Iopamidol 75 ml 05/05/24 21:58 05/05/24 22:00 Iopamidol-370 (76%);100ml Bottle IV 05/05/24 21:59 75 ml ONCE ONE Administration Metoclopramide HCl 5 mg 05/05/24 22:07 05/05/24 22:10 Metoclopramide Hcl 10mg/2ml Vial IVP 05/05/24 22:08 5 mg ONCE ONE Administration Ondansetron HCl 4 mg 05/05/24 21:28 05/05/24 21:32 Ondansetron 4mg/2ml Vial IV 05/05/24 21:29 4 mg ONCE ONE Administration ORDERS Category Date Time Status CT abdomen pelvis w con Stat Cat Scan 05/05/24 21:29 Taken Complete Blood Count Auto Diff Stat Lab 05/05/24 21:20 Completed Comprehensive Metabolic Panel Stat Lab 05/05/24 21:20 Completed Lactic Acid Stat Lab 05/05/24 21:20 Completed Medical Decision Narrative: In summary, this patient is a 58-year-old male presenting to the Emergency Department for evaluation of irreducible ventral hernia. Differential diagnoses considered include but are not limited to incarcerated hernia, strangulated hernia, bowel obstruction, symptomatic hernia. Ruling out the most morbid conditions drove assessment. It should be noted patient's history includes multiple hernia surgeries in the past as well as type 2 diabetes which may or may not be at goal therapy. This complicates all aspects of care by increasing patient's risk for morbidity. I reviewed patient's past medical records and noted previous evaluations by Dr. Frazier for management of hernias in the past. On exam, the patient is resting comfortably in bed in no acute distress. He has a large incisional hernia that is soft with no overlying skin color changes, but I am unable to reduce it. Workup included, CMP, lactic acid, and CT abdomen and pelvis with IV contrast. He was given 50 mcg of IV fentanyl as well as 4 mg of Zofran for further attempt at reduction. He was given 1 L bolus IVF. I independently interpreted CT scan prior to the radiologist read and noted bowel obstruction related to his incarcerated ventral hernia. Please see their read for final interpretation. Labs were obtained that demonstrated mild leukocytosis at 11.5 but normal lactic acid at 1.5. On reassessment, patient had some improvement after administration of pain medication above, but I could not reduce it even after pain medication. He had recurrence of severe pain and nausea after pain medication wore off, so he was given IV Dilaudid and IV Reglan. He has significant dilation of his stomach with a lot of fluid within his stomach, so I had a discussion with the patient regarding NG tube placement.. Patient declined NG tube placement after risk vs benefit discussion. I had an interactive discussion with Dr. Spence with general surgery here at our hospital who advised he felt the patient would benefit from transfer to higher level of care since he was already awaiting elective repair at , where he had been sent for higher care previously. Given this, I had an interactive discussion with Dr. Quinonez in the [facility] transfer center who accepted the patient for further evaluation and management. He was transferred to [facility] in stable condition by EMS. Critical Care Critical Care Time Critical Care Time: No
[2024-05-05 21:30] VITALS: BP 132/71; PULSE 72; RESP 16; O2SAT 96
[2024-05-05] MEDS: ONDANSETRON 4MG/2ML VIAL 4 MG IV (21:32)
[2024-05-05] MEDS: FENTANYL 100MCG/2ML VIAL 50 MCG IV (21:32)
[2024-05-05 21:33] LABS: Chloride 100 mmol/L (98-107)
[2024-05-05 21:34] LABS: Potassium 3.9 mmoL/L (3.5-5.1); Sodium 137 mmol/L (136-145)
[2024-05-05 21:36] LABS: Alanine Aminotransferase 33 U/L (12-78); Alkaline Phosphatase 88 U/L (38-126); Aspartate Amino Transferase 34 U/L (17-59); Bilirubin,Total 0.8 mg/dl (0.2-1.3); Blood Urea Nitrogen 18 mg/dl (9-20); Creatinine Clearance Estimated 150 mL/min (50-200); Estimated Glomerular Filt Rate 99 ml/min (>60); GFR (African American) 120 ML/MIN (>60)
[2024-05-05 21:37] LABS: Albumin Level 4.8 g/dl (3.5-5.0); Albumin/Globulin Ratio 1.5 (1.1-1.8); Anion Gap 11.9 mEq/L (5-15); Calcium 10.3 mg/dl (8.4-10.2); Carbon Dioxide 29 mmol/L (22.0-30.0); Globulin 3.3 g/dL (1.3-3.2); Glucose 132 mg/dl (74-100); Lactic Acid 1.5 mmol/L (0.7-2.1); Total Protein,Serum 8.1 g/dl (6.3-8.2)
--- NOTE | 2024-05-05 21:55 | PC.NURSE ---
paged dr howard. 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
[2024-05-05 22:00] VITALS: BP 102/84; PULSE 71; RESP 18; O2SAT 97
[2024-05-05] MEDS: IOPAMIDOL-370 (76%);100ML BOTTLE 75 ML IV (22:00)
[2024-05-05] MEDS: SODIUM CHLORIDE 0.9% 10ML SYR (RAD ONLY) 10 ML IV (22:00)
[2024-05-05] MEDS: HYDROMORPHONE 2MG/ML SYRINGE 1 MG IV (22:03)
--- NOTE | 2024-05-05 22:05 | PC.NURSE ---
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
--- NOTE | 2024-05-05 22:05 | PC.NURSE ---
discussing case with ARNIE
[2024-05-05] MEDS: METOCLOPRAMIDE HCL 10MG/2ML VIAL 5 MG IVP (22:10)
--- NOTE | 2024-05-05 22:16 | PC.NURSE ---
Called [facility] about transfer of care for the pt. Awaiting call back from [facility]. CR
[2024-05-05 22:31] VITALS: BP 125/78; PULSE 77; O2SAT 95
[2024-05-05] MEDS: LACTATED RINGERS 1000ML 1,000 ML 999 ML IV (22:33)
--- NOTE | 2024-05-05 22:37 | PC.NURSE ---
Called for EMS about transfer, No answer. Will call back again. CR
--- NOTE | 2024-05-05 22:39 | PC.NURSE ---
Nurse to nurse report to Sammi at ER
--- NOTE | 2024-05-05 22:43 | PC.NURSE ---
unable to reach EMS at the station, dispatch contacted and asked to dispatch EMS to [facility]
[2024-05-05 22:56] VITALS: BP 125/78; PULSE 77; RESP 16; TEMP 36.5; O2SAT 95
== END 2024-05-05 23:08 | disposition short-term general hospital (02) ==
PROVIDERS: Emergency Provider Emergency Medicine; PCP Family Medicine
DX: K43.0 Incisional hernia with obstruction, without gangrene (principal); R10.32 Left lower quadrant pain; R11.0 Nausea; E11.9 Type 2 diabetes mellitus without complications; I10 Essential (primary) hypertension; E78.5 Hyperlipidemia, unspecified; Z79.84 Long term (current) use of oral hypoglycemic drugs; Z79.85 Long-term (current) use of injectable non-insulin antidiabetic drugs
CPT/HCPCS: 74177; 80053; 83605; 85025; 96361; 96374; 96375; 99285; J1170; J2405; J2765; J3010; J7120; Q9967

== ENCOUNTER 2024-08-09 18:04 | Outpatient (CLI) | payer BC, SELFPAY ==
[2024-08-09 17:13] LABS: Adenovirus,PCR Not Detected (NotDetected); Bordetella Pertussis Not Detected (NotDetected); Chlamydophila Pneumoniae, PCR Not Detected (NotDetected); Coronavirus 19, PCR Not Detected (NotDetected); Coronavirus 229E Not Detected (NotDetected); Coronavirus NL63 Not Detected (NotDetected); Coronavirus OC43 Not Detected (NotDetected); Coronovirus HKU1,PCR Not Detected (NotDetected); Human Metapneumovirus Not Detected (NotDetected); Influenza A, PCR Not Detected (NotDetected); Influenza AH1, 2009 Not Detected (NotDetected); Influenza AH1, PCR Not Detected (NotDetected); Influenza AH3,PCR Not Detected (NotDetected); Influenza B, PCR Not Detected (NotDetected); Mycoplasma Pneumoniae, PCR Not Detected (NotDetected); Parainfluenza 1, PCR Not Detected (NotDetected); Parainfluenza 2, PCR Not Detected (NotDetected); Parainfluenza 3, PCR Not Detected (NotDetected); Parainfluenza 4, PCR Not Detected (NotDetected); Respiratory Syncytial Virus Not Detected (NotDetected); Rhinovirus/Enterovirus Not Detected (NotDetected)
== END 2024-08-09 23:59 | disposition home or self-care (01) ==
LOC: LAB.DROPOF 18:04
PROVIDERS: PCP Internal Medicine; Visit Provider Internal Medicine
DX: R05.9 Cough, unspecified (principal); R09.81 Nasal congestion; J34.89 Other specified disorders of nose and nasal sinuses; R09.82 Postnasal drip
CPT/HCPCS: 87265; 87486; 87581; 87632; 87635

== ENCOUNTER 2024-10-18 12:30 | Outpatient (CLI) | payer BC, SELFPAY ==
[2024-10-18 18:47] LABS: Coronavirus 19, PCR Not Detected (NotDetected); Human Rhinovirus Not Detected (NotDetected); Influenza B, PCR Not Detected (NotDetected)
[2024-10-19 00:14] LABS: Influenza A, PCR Detected (NotDetected); Respiratory Syncytial Virus Detected (NotDetected)
== END 2024-10-18 23:59 | disposition home or self-care (01) ==
LOC: LAB.DROPOF 10-22 12:31
PROVIDERS: PCP Student in an Organized Health Care Education/Training Program; Visit Provider Student in an Organized Health Care Education/Training Program
DX: R09.81 Nasal congestion (principal); J09.X9 Influenza due to identified novel influenza A virus with other manifestations
CPT/HCPCS: 87631

== ENCOUNTER 2025-04-05 15:06 | Outpatient (CLI) | payer MEDICARE, SELFPAY ==
[2025-04-04 17:22] LABS: Coronavirus 19, PCR Not Detected (NotDetected); Human Rhinovirus Not Detected (NotDetected); Influenza A, PCR Not Detected (NotDetected); Influenza B, PCR Not Detected (NotDetected); Respiratory Syncytial Virus Not Detected (NotDetected)
--- OUTSIDE RECORDS SUMMARY | 2025-04-05 23:09 | XMS_ITS ---
Author Organization Unknown TREATMENT PLAN [facility] Start Date Provider Encounter for Check-up [id number] [facility]
--- OUTSIDE RECORDS SUMMARY | 2025-04-05 23:09 | XMS_ITS | Clinical Summary ---
Author Organization [facility] Address [address] [place] [address] Care Team Providers Care Log Skidder Name Role Phone Octavio Carnes MD Primary Care Provider Allergies No known active allergies Medications metFORMIN XR (Glucophage-XR) 500 MG 24 hr tablet TAKE FOUR TABLETS BY MOUTH EVERY DAY with breakfast Active pravastatin (Pravachol) 20 MG tablet Take 1 tablet (20 mg) by mouth 1 (one) time each day. Active lisinopril 10 MG tablet Take 1 tablet (10 mg) by mouth 1 (one) time each day. Active Jardiance 25 MG Take 1 tablet (25 mg) by mouth 1 (one) time each day. 4 Active Mounjaro 15 MG/0.5ML solution pen-injector solution pen-injector Inject 0.5 mL (15 mg) under the skin 1 (one) time per week. Tuesday 4 Active Ibuprofen-diphe nhydrAMINE Cit (Advil PM) 200-38 MG tablet Take by mouth if needed. Active oxyCODONE (Roxicodone) 5 MG immediate release tablet Take 1 tablet (5 mg) by mouth every 6 (six) hours if needed for moderate pain or severe pain. 30 tablet 4 Active Additional Information Patient not taking.Reported on 11/07/2024 gabapentin (Neurontin) 100 MG capsule Take 1 capsule (100 mg) by mouth 3 (three) times a day. 90 capsule 4 Active naloxone (Narcan) 4 mg/0.1 mL nasal spray 1. Give 1 spray in nostril for no/slow breathing or cannot wake after opioid use 2. Call 911 3. Repeat in other nostril if symptoms continue 1 each Active Additional Information Patient not taking.Reported on 11/07/2024 meloxicam (Mobic) 15 MG tablet Take 1 tablet (15 mg) by mouth 1 (one) time each day. Active omeprazole (PriLOSEC) [address] capsule Take 1 capsule (40 mg) by mouth 1 (one) time each day. 4 Active Active Problems Problem Noted Date Diagnosed Date History of incisional hernia repair 06/21/2024 Recurrent incisional hernia with incarceration 0 06/11/2024 Recurrent ventral incisional hernia 05/30/2024 Recurrent incisional hernia 12/29/2023 Obesity (BMI 35.0-39.9 without comorbidity) 04/2024 Diabetes 1.5, managed as type 2 12/29/2023 Family History Medical History Relation Name Comments No Known Problems Father No Known Problems Maternal Grandfather No Known Problems Maternal Grandmother No Known Problems Mother No Known Problems Paternal Grandfather No Known Problems Paternal Grandmother Malig Hyperthermia Neg Hx Relation Name Status Comments Father Maternal Grandfather Maternal Grandmother Mother Paternal Grandfather Paternal Grandmother Social History Tobacco Use Types Packs/Day Years Used Date Smoking Tobacco: Never Passive Smoke Exposure: Never Smokeless Tobacco: Never Tobacco Cessation:Counseling Given: Not Answered Alcohol Use Standard Drinks/Week Comments Yes 1 (1 standard drink = 0.6 oz pur e alcohol) occ PHQ-2 Answer Date Recorded Patient Health Questionnaire-2 Score 0 08/08/2024 Sex and Gender Information Value Date Recorded Sex Assigned at Not on file Legal Sex Male 7:45 PM EDT Gender Identity Not on file Sexual Orientation Not on file Last Filed Vital Signs Vital Sign Reading Time Taken Comments Blood Pressure 146/84 11/07/2024 9:44 AM EST Pulse 79 11/07/2024 9:44 AM EST Temperature 36.6 C (97.9 F) 11/07/2024 9:44 AM EST Respiratory Rate 16 06/21/2024 11:07 AM EDT Oxygen Saturation 97% 06/21/2024 11:07 AM EDT Inhaled Oxygen Concentration - - Weight 108 kg (238 lb 9.6 oz) 11/07/2024 9:44 AM EST Height 176 cm (5' 9.29 ) 11/07/2024 9:44 AM EST Body Mass Index 34.94 11/07/2024 9:44 AM EST Plan of Treatment Upcoming Encounters Date Type Department Care Team (Late st Contact Info) Description 05/15/2025 9:40 AM EDT [facility] Visit [facility] [address] [place] [address] Shade Wilkinson MD [address] [facility] [address] [place] [id number] Health Maintenance Due Date Last Done Comments [facility]-/Child/Adol SDOH Screenings 1964 Diabetes: Dental Exam 1974 [facility]- SDOH Screenings 1982 [facility]-Adult SDOH Screenings 1982 [facility]-Pneumococcal Vaccine: 50+ Years (1 of 2 - PCV) 1983 CT Colonography 2009 Colonoscopy 2009 FIT-DNA 2009 FIT 2009 FOBT 2009 Sigmoidoscopy 2009 [facility]-Colorectal Cancer Screening 2009 [facility]-Zoster Vaccines (1 of 2) 2014 [id number] Vaccine (3 - season) 2024 12/12/2020, 11/12/2020 [facility]-Diabetes: Hemoglobin A1C 11/27/202404/2024, 05/26/2023, 02/22/2023 [facility]-Influenza Vaccine (Season Ended) 2025 08/26/2023, 08/27/2022, 08/25/2021, Additional history exists [facility]-Depression Screening 08/08/2025 08/08/2024 [facility]-DTaP,Tdap,and Td Vaccines (2 - Td or Tdap) 08/26/2033 08/26/2023 [facility]-RSV Vaccine: 60+ Years or (1 - 1-dose 75+ series) 2039 [facility]-HIV Screening Completed 05/25/2024 [facility]-Hepatitis C Screening Completed 05/25/2024 [facility]-Obesity Intervention Completed 025, 08/08/2024, 06/21/2024, Additional history exists HPV Vaccines Aged Out No longer eligi ble based on patient's age to complete this topic [facility]-HIB Vaccines Aged Out No longer e ligible based on patient's age to complete this topic [facility]-Hepatitis A Vaccines Aged Out No longer eligible based on patient's age to complete this topic [facility]-IPV Vaccines Aged Out No longer e ligible based on patient's age to complete this topic [facility]-Rotavirus Vaccines Aged Out No lo nger eligible based on patient's age to complete this topic Medical Devices Implanted Type Area Freight Booker Device Identifier Shelf Expiration Date Model / Serial / Lot Knee Knee Bilateral: Knee Biomaterial Enform 20cm X 30cm - [id number] - [id number] Implanted:Qty: 1 on 06/11/2024 by Shade Wilkinson MD at [facility] N/A: Abdomen [facility] [employer] [facility]-[id number] 02/20/2025 [id number] / [id number] / Procedures Procedure Name Priority Date/Time Associated Diagnosis Comments POCT GLYCOSYLATED HEMOGLOBIN (HGB A1C) Routine 05/30/2024 10:01 AM EDT Recurrent ventral incisional hernia HEPATITIS C ANTIBODY - ED W/REFLEX TO HCV QUANT PCR STAT 05/25/2024 9:18 PM EDT ED HIV 1/2 ANTIBODY/ANTIGEN SCREEN WITH REFLEX TO HIV I/II DIFFERENTIATION STAT 05/25/2024 9:18 PM EDT from Last 3 Months or Most Recently Relevant to Health Maintenance Results * POCT Glycosylated Hemoglobin (Hgb A1C) (05/30/2024 10:01 AM EDT) POCT Hemoglobin A1C 6.5 <5.7% Non-Diabet ic % [facility] Kit Lot Number [id number] [facility] Kit Expiration Date 01/21/26 [facility] Blood Venous blood specimen / Unknown 05/30/2024 10:01 AM EDT us Shade Wilkinson MD POINT OF CARE TEST ENTER/EDIT OR DERABLES Final Result Performing Organization Address [facility] Co de Phone Number [facility] [address] [place] [address] * ED HIV 1/2 Antibody/Antigen Screen w/Reflex to HIV 1/2 Differentiation (05/25/2024 9:18 PM EDT) HIV 1 & 2 Antibody/Antigen Screen Non Reactive Non Reactive 05/25/2024 10:10 PM EDT [facility] Comment:Screening for HIV 1 & 2 antibodies, and P24 antigen is NONREACTIVE. No confirmatory testing is required. Blood Venous blood specimen / Unknown Venipuncture / Unknown 05/25/2024 9:18 PM EDT 05/25/2024 9:30 PM EDT Darian Romeo MD LAB BLOOD ORDERABLES Fi nal Result Performing Organization Address [facility] Co de Phone Number [facility] [address] [place] [address] * Hepatitis C Antibody - ED (05/25/2024 9:18 PM EDT) Hepatitis C Antibody Negative Negative 05/25/2024 10:10 PM EDT [facility] Blood Venous blood specimen / Unknown Venipuncture / Unknown 05/25/2024 9:18 PM EDT 05/25/2024 9:29 PM EDT Darian Romeo MD LAB BLOOD ORDERABLES Fi nal Result Performing Organization Address City/[facility] Co de Phone Number [facility] [address] [place] [address] from Last 3 Months or Most Recently Relevant to Health Maintenance Insurance [employer] Advance Directives * Full Code (Latest Code Status on File) Date Activated Date Inactivated Comments 06/11/2024 5:10 PM 06/14/2024 3:52 PM Question Answer Comments Patient has decision-making capacity? Yes Care Teams Log Skidder Relationship Specialty Start Date End Date Octavio Carnes MD [address] [place] [id number] PCP - General 11/13/23
== END 2025-04-05 23:59 | disposition home or self-care (01) ==
LOC: LAB.DROPOF 23:07
PROVIDERS: PCP Nurse Practitioner Family; Visit Provider Nurse Practitioner Family
DX: R05.9 Cough, unspecified (principal); R09.81 Nasal congestion; H04.203 Unspecified epiphora, bilateral; J34.89 Other specified disorders of nose and nasal sinuses
CPT/HCPCS: 87631